=== PATIENT | female | born 1995 | race Caucasian/White ===

== ENCOUNTER 2017-02-01 02:54 | Emergency (ER) | payer OTHER ==
[~2017-02-01] VITALS: Ht 160 cm; Wt 58.5 kg
[2017-02-01 02:57] VITALS: Ht 160 cm; Wt 58.5 kg
[2017-02-01] MEDS ORDERED: DiphenhydrAMINE HCL 50 MG/ML VIAL IV STA (03:12)
[2017-02-01] MEDS ORDERED: PROCHLORPERAZINE 5 MG/ML 2 ML VIAL IV STA ×2 (03:12→03:42)
[2017-02-01] MEDS ORDERED: KETOROLAC TROMETHAMINE 30 MG/ML VIAL IV STA (03:12)
[2017-02-01] MEDS ORDERED: SODIUM CHLORIDE 0.9% 1000ML 1,000 ML IV STA (03:12)
--- NOTE | 2017-02-01 03:15 | EMERGENCY ROOM VISIT NOTE ---
History Report prepared by Otf: Anabell Syed Under the Supervision of: Dr. Shon Sanders M.D. First contact with patient: 03:07 Chief Complaint: FEVER Stated Complaint: FEVER OF 102.8,DAVIS,SICK IN STOMACH History of Present Illness The patient is a 21 year old female who presents to the Emergency Room with complaints of a fever beginning 10 hours ago. The patient also complains of a headache and that she has been unable to sleep. She took Tylenol 4 hours ago but it did not mitigate her symptoms. She denies having a cough, urinary symptoms, and abdominal pain. Source of History: patient Onset: 10 hours ago Position: other (global) Quality: other (fever) Associated Symptoms: + headache, No cough, No abdominal pain, No urinary symptoms Review of Systems See HPI for pertinent positives & negatives. A total of 10 systems reviewed and were otherwise negative. Past Medical & Surgical Medical Problems: (1) Asthma (2) Urin Tract Infection Nos Family History No pertinent family history Social History Smoking Status: Never Smoker Drug Use: none Marital Status: Housing Status: lives with significant other Occupation Status: student Current/Historical Medications Scheduled Amoxicillin & Pot Clavulanate (Augmentin 875-125 mg), 1 TAB PO BID Scheduled PRN Acetaminophen (Tylenol), 1,000 MG PO Q4 PRN for Pain or Fever Allergies Coded Allergies: No Known Allergies (Unverified , 02/01/17) Physical Exam Vital Signs Date Time Temp Pulse Resp B/P (MAP) Pulse Ox O2 Delivery O2 Flow Rate FiO2 02/01/17 05:06 37.7 112 18 112/61 97 Room Air 02/01/17 02:57 38.3 139 20 108/65 98 Room Air Physical Exam GENERAL: Patient is a healthy-appearing well-nourished female. No evidence of meningitis or encephalitis upon examination. HEAD: Normocephalic atraumatic EYES: Ocular movements intact pupils equal and react to light OROPHARYNX mucous membranes are moist no exudates present no erythema or edema present NECK: Supple no nuchal rigidity CHEST: Good equal expansion LUNGS: Clear and equal to auscultation CARDIAC: Normal S1 and S2 ABDOMEN: Soft nontender no guarding BACK: No CVA tenderness EXTREMITIES: No pain upon palpation normal muscle strength in all groups no clubbing cyanosis or edema NEURO: Patient is following commands and answering questions appropriately. Alert and oriented x3 Cranial Nerves 2-12 grossly intact Medical Decision & Procedures Laboratory Results 02/01/17 03:30 Red Blood Count 4.68, Mean Corpuscular Volume 87.8, Mean Corpuscular Hemoglobin 30.6, Mean Corpuscular Hemoglobin Concent 34.8, Mean Platelet Volume 10.5, Neutrophils (%) (Auto) 92.7, Lymphocytes (%) (Auto) 3.1, Monocytes (%) (Auto) 3.6, Eosinophils (%) (Auto) 0.1, Basophils (%) (Auto) 0.1, Neutrophils # (Auto) 16.97, Lymphocytes # (Auto) 0.57, Monocytes # (Auto) 0.66, Eosinophils # (Auto) 0.01, Basophils # (Auto) 0.01 02/01/17 03:30 Test 02/01/17 00:00 02/01/17 03:30 02/01/17 04:00 Urine Color YELLOW Urine Appearance CLEAR (CLEAR) Urine pH >= 9.0 (4.5-7.5) Urine Specific [place] 1.019 (1.000-1.030) Urine Protein NEG (NEG) Urine Glucose (UA) NEG (NEG) Urine Ketones NEG (NEG) Urine Occult Blood NEG (NEG) Urine Nitrite NEG (NEG) Urine Bilirubin NEG (NEG) Urine Urobilinogen NEG (NEG) Urine Leukocyte Esterase NEG (NEG) Influenza Type A (RT-PCR) Neg for Influ A (NEG) Influenza Type A Antigen Neg for Influ A (NEG) Influenza Type B Antigen Neg for Influ B (NEG) Influenza Type B (RT-PCR) Neg for Influ B (NEG) White Blood Count 18.29 K/uL (4.8-10.8) Red Blood Count 4.68 M/uL (4.2-5.4) Hemoglobin 14.3 g/dL (12.0-16.0) Hematocrit 41.1 % (37-47) Mean Corpuscular Volume 87.8 fL (80-100) Mean Corpuscular Hemoglobin 30.6 pg (25-34) Mean Corpuscular Hemoglobin Concent 34.8 g/dl (32-36) Platelet Count 213 K/uL (130-400) Mean Platelet Volume 10.5 fL (7.4-10.4) Neutrophils (%) (Auto) 92.7 % Lymphocytes (%) (Auto) 3.1 % Monocytes (%) (Auto) 3.6 % Eosinophils (%) (Auto) 0.1 % Basophils (%) (Auto) 0.1 % Neutrophils # (Auto) 16.97 K/uL (1.4-6.5) Lymphocytes # (Auto) 0.57 K/uL (1.2-3.4) Monocytes # (Auto) 0.66 K/uL (0.11-0.59) Eosinophils # (Auto) 0.01 K/uL (0-0.5) Basophils # (Auto) 0.01 K/uL (0-0.2) RDW Standard Deviation 38.4 fL (36.4-46.3) RDW Coefficient of Variation 12.1 % (11.5-14.5) Immature Granulocyte % (Auto) 0.4 % Immature Granulocyte # (Auto) 0.07 K/uL (0.00-0.02) Red Blood Cell Morphology Unremarkable Anion Gap 9.0 mmol/L (3-11) Est Creatinine Clear Calc Drug Dose 79.1 ml/min Estimated GFR () 101.8 Estimated GFR (Non- 87.9 BUN/Creatinine Ratio 8.5 (10-20) Calcium Level 8.6 mg/dl (8.5-10.1) Total Bilirubin 0.6 mg/dl (0.2-1) Direct Bilirubin 0.1 mg/dl (0-0.2) Aspartate Amino Transf (AST/SGOT) 12 U/L (15-37) Alanine Aminotransferase (ALT/SGPT) 11 U/L (12-78) Alkaline Phosphatase 78 U/L (45-117) Total Protein 7.7 gm/dl (6.4-8.2) Albumin 4.1 gm/dl (3.4-5.0) Monoscreen NEG (NEG) Urine Test NEG (NEG) Labs reviewed by ED physician. Medications Administered Medications (Trade) Dose Ordered Sig/Dilan Route Start Time Stop Time Status Last Admin Dose Admin Sodium Chloride 1,000 ml @ 999 mls/hr Q1H1M STAT IV 02/01/17 03:12 02/01/17 04:12 DC 02/01/17 03:12 999 MLS/HR Ketorolac Tromethamine (Toradol Inj) 30 mg NOW STAT IV 02/01/17 03:12 02/01/17 03:15 DC 02/01/17 03:12 30 MG Diphenhydramine HCl (Benadryl Inj) 50 mg NOW STAT IV 02/01/17 03:12 02/01/17 03:15 DC 02/01/17 03:43 50 MG Prochlorperazine Edisylate (Compazine Inj) 5 mg NOW STAT IV 02/01/17 03:42 02/01/17 03:44 DC 02/01/17 03:42 5 MG Acetaminophen (Tylenol Tab) 1,000 mg NOW STAT PO 02/01/17 04:53 02/01/17 04:54 DC 02/01/17 05:04 1,000 MG Amoxicillin/ Clavulanate Potassium (Augmentin Tab) 875 mg NOW STAT PO 02/01/17 04:57 02/01/17 04:59 DC 02/01/17 05:04 875 MG ED Course 0305: Past medical records reviewed. The patient was evaluated in room B12B. A complete history and physical examination was performed. 0312: Ordered Benadryl Inj 50 mg IV, Compazine Inj 5 mg IV, Toradol Inj 30 ng IV , Sodium Chloride 1,000 ml @ 999mls/hr IV. 0320: Ordered Lorazepam 1 mg IV. 0342: Ordered Compazine Inj 5 mg IV. 0453: Ordered Tylenol Tab 1,000 mg PO. 0457: Ordered Augmentin Tab 875 mg PO. 0500: Upon reexamination the patient is resting comfortably. I discussed results and treatment plan with the patient. She verbalizes agreement and understanding. The patient is ready for discharge. Medical Decision Differentials: Influenza, other viral illness, pneumonia, urinary tract infection, metabolic abnormality, medication effect, cellulitis, meningitis, intra-abdominal source. Medication Reconciliation: I attest that I have personally reviewed the patient' s current medication list Blood Pressure Screening: Patient was found to have normal blood pressure on screening and does not require follow up. This is a 21-year-old female who presents emergency department complaining of headache. The patient reports this is not the worst headache of her life and she has had headaches similar to this in the past. In addition she does not have any evidence of meningitis or encephalitis on examination. She does have a high elevation in her white blood cell count and the patient reports she has had sinusitis-like symptoms for the past week. For this reason the patient was given Augmentin. She was also given normal saline bolus, Toradol, Compazine, Benadryl. Repeat examination revealed much improvement patient's symptoms. I do feel that the patient as well as to be discharged home for follow-up with primary care physician. Both patient and significant other were in agreement with the treatment plan to return to the emergency department for a lumbar puncture if she develops severe headache along with fevers. Impression Primary Impression: Fever Scribe Attestation The scribe's documentation has been prepared under my direction and personally reviewed by me in its entirety. I confirm that the note above accurately reflects all work, treatment, procedures, and medical decision making performed by me. Departure Information Dispostion Home / Self-Care Prescriptions Amoxicillin & Pot Clavulanate (Augmentin 875-125 mg) 1 Tab Tab 1 TAB PO BID for 10 Days, #20 TAB Prov: Shon Sanders MD 02/01/17 Referrals No Doctor, Assigned (PCP) Forms HOME CARE DOCUMENTATION FORM, IMPORTANT VISIT INFORMATION, School Instructions, Work Instructions Patient Instructions ED Sinusitis Abx Tx, [facility] Additional Instructions Take 600 mg Ibuprofen every 6 hours Take 1000 mg Tylenol every 6 hours Culture results are usually available in approx 48 hours You have been examined and treated today on an emergency basis only. This is not a substitute for, or an effort to provide, complete comprehensive medical care. It is impossible to recognize and treat all injuries or illnesses in a single emergency department visit. It is therefore important that you follow up closely with your PCP. Call as soon as possible for an appointment. Thank you for your time and consideration. I look forward to speaking with you again soon. Please don't hesitate to call us if you have any questions. Problem Qualifiers Primary Impression: Fever Fever type: unspecified Qualified Codes: R50.9 - Fever, unspecified
[2017-02-01] MEDS ORDERED: LORAZEPAM 2 MG/ML 1 ML VIAL IV STA (03:20)
[2017-02-01 03:58] LABS: URINE APPEARANCE CLEAR (CLEAR); URINE BILIRUBIN NEG (NEG); URINE COLOR YELLOW; URINE NITRITE NEG (NEG); URINE PH >= 9.0 (4.5-7.5); URINE SPECIFIC GRAVITY 1.019 (1.000-1.030); UROBILINOGEN NEG (NEG)
[2017-02-01 03:59] LABS: MANUAL MICROSCOPIC REQUIRED? NO; REVIEW REQ? NO
[2017-02-01 04:11] LABS: PREG INTERNAL NEGATIVE QC NEG CLEAR BACKGROUND; PREG INTERNAL POSITIVE QC POS CONTROL LINE
[2017-02-01] MEDS ORDERED: ACET-1256 PO (04:18)
[2017-02-01 04:22] LABS: HEMATOCRIT 41.1 % (37-47); MEAN CELL VOLUME 87.8 fL (80-100); MEAN CORPUSCULAR HEMOGLOBIN 30.6 pg (25-34); MEAN CORPUSCULAR HGB CONC 34.8 g/dl (32-36); MEAN PLATELET VOLUME 10.5 fL (7.4-10.4); PLATELET COUNT 213 K/uL (130-400); RED BLOOD COUNT 4.68 M/uL (4.2-5.4); WHITE BLOOD COUNT 18.29 K/uL (4.8-10.8)
[2017-02-01 04:41] LABS: BUN/CREATININE RATIO 8.5 (10-20); CALCIUM 8.6 mg/dl (8.5-10.1); CREATININE 0.93 mg/dl (0.60-1.20); POTASSIUM 3.3 mmol/L (3.5-5.1)
[2017-02-01 04:44] LABS: BASO % 0.1 %; BASO ABS # 0.01 K/uL (0-0.2); COMPLETE YES; EOS % 0.1 %; IG% 0.4 %; LYMPH % 3.1 %; LYMPH ABS # 0.57 K/uL (1.2-3.4); MONO % 3.6 %; NEUT % 92.7 %
[2017-02-01] MEDS ORDERED: ACETAMINOPHEN 500 MG TAB PO STA (04:53)
[2017-02-01] MEDS ORDERED: AMOXICILLIN/CLAVULANATE TAB 875 MG TAB PO STA (04:57)
[2017-02-01] MEDS ORDERED: AMOX875T PO (04:59)
[2017-02-01 05:06] VITALS: BP 112/61; PULSE 112; TEMP 37.7; O2SAT 97
[2017-02-01 05:54] LABS: INFLUENZA A PCR Neg for Influ A (NEG); INFLUENZA B PCR Neg for Influ B (NEG)
[2017-02-03 16:37] LABS: EBV EARLY ANTIGEN AB <9.00 U/ML; EPSTEIN BARR VIR CAPSID IGG <18.00 U/ML
== END 2017-02-01 05:07 | disposition home or self-care (01) ==
LOC: C.EDB 02:56
DX: R50.9 Fever, unspecified (principal); J45.909 Unspecified asthma, uncomplicated; Z87.440 Personal history of urinary (tract) infections

== ENCOUNTER 2024-01-27 14:48 | Inpatient (IN) ==
[2024-01-27] MEDS: LACTATED RINGER'S 1,000 ML IV PRN (15:35)
[2024-01-27] MEDS ORDERED: LIDOCAINE 1% LOCAL 20 ML VIAL INFIL PRN (15:39)
[2024-01-27] MEDS ORDERED: OXYTOCIN 30 UNITS/NSS 30 UNITS/500 ML BAG IV PRN (15:39)
[2024-01-27] MEDS: BUTORPHANOL TARTRATE 2 MG/ML VIAL IV ONE (15:56)
[2024-01-27 16:17] LABS: Hematocrit (blood only) 33.9 % (37.0-47.0); Hemoglobin 10.9 g/dl (12.0-16.0); Mean Corpuscular Hemoglobin 27.8 pg (25.0-34.0); Mean Corpuscular Hgb Conc 32.2 g/dL (32.0-36.0); Mean Corpuscular Volume 86.5 fL (80.0-100.0); Mean Platelet Volume 9.9 fL (9.4-12.4); Platelet Count 239 K/uL (130-400); RDW Coefficient of Variation 12.5 % (11.5-14.5); Red Blood Count 3.92 M/uL (4.20-5.40); White Blood Count 13.64 K/ul (4.8-10.8)
[2024-01-27] MEDS: BUTORPHANOL TARTRATE 2 MG/ML VIAL IV PRN (17:52)
--- OUTSIDE RECORDS SUMMARY | 2024-01-27 20:31 | External Medical Summary ---
Author Name Unknown Address Unknown Organization K01:[facility] [place] - [facility] [address] [place] [id number] Laboratory Report Ordering Provider Test Date Status ESTEBAN MORLEY 01/24/2024 14:19:34 Final Observation Date Value Abnormality Reference (Units ) Status Streptococcus agalactiae DNA [Presence] in Specimen by BLAYNE with probe detection 01/24/2024 14:19:34 Negative Negative Final No Group B Streptococcus det ected by culture-enhanced PCR (amplified probe). [facility] - [facility] 01/24/2024 14:19:34 0.0 Final [facility]BS SPCCT - [facility] 01/24/2024 14:19:34 30.8 Final Performing Location [facility] [place] - [address] [place] [id number]
--- OUTSIDE RECORDS SUMMARY | 2024-01-27 20:31 | External Medical Summary | Summary of Care ---
Author Name Unknown Organization [facility] Address [address] [address] Phone [phone] Care Team Providers Care Story Writer Name Role Phone Sydney Hendricks DO Primary Care Provider [phone] Reason for Visit * Reason Comments Return Visit Encounter Details Date Type Department Care Team (Late st Contact Info) Description 01/24/2024 2:15 PM EDT Office Visit Gynecology/Obstetric s Justyn Brown [address] [place] [address] Jana Betts CRNP [address] [place] [address] Supervision of normal first , antepartum* Allergies No known active allergiesdocumented as of this encounter (statuses as of 01/24/2024) Medications Medication Sig Dispensed Refills Start Date End Date Status Albuterol Sulfate (ALBUTEROL HFA) 108 (90 BASE) MCG/ACT inhalerIndications: Acute bronchospasm Inhale 2 Puffs by mouth every 4 hours as needed for Wheezing. 18 g 1 02/13/2020 Active Clindamycin Phosphate 1 % External SolutionIndications :Acne, unspecified acne type Apply topically to affected area 2 times a day. To affected area of skin. 60 mL 5 12/19/2020 Active Complete Oral Capsule Therapy Pack Take by mouth. Active Clindamycin Phos-Benzoyl Perox 1-5 % External Gel Apply topically to affected area 2 times a day. To affected area (after washing and drying area). 60 g 11 09/29/2023 Active FLUoxetine HCl 10 MG Oral Capsule (PROzac)Indications :HAROON (generalized anxiety disorder) TAKE 1 CAPSULE BY MOUTH EVERY MORNING 90 Capsule 3 10/10/2023 Active Additional Information Patient taking differently: 20 mgOral Daily(AM), Every morning., Reported on 11/14/2023 Loratadine 10 MG Oral Tablet (Claritin) Take 1 Tablet by mouth in the morning. Active Breast Pump Dispense double electric breast pump. Dx:Z39.1 1 Each 01/10/2024 Active documented as of this encounter (statuses as of 01/24/2024) Active Problems Problem Noted Date Diagnosed Date Supervision of normal first , antepartu m 07/14/2023 Medical marijuana use 08/17/2021 Exercise-induced asthma 02/18/2020 HAROON (generalized anxiety disorder) 06/02/2017 Social anxiety disorder 06/02/2017 Acne Estimated Date of Delivery Comme nts Yes 02/19/2024 Based on last me nstrual period of 05/15/2023 documented as of this encounter (statuses as of 01/24/2024) Resolved Problems Problem Noted Date Diagnosed Date Resolved Date Varicella without complication 09/25/2010 04/24/2018 Overview: Mother states child had disease when she was a baby. Routine child health exam 02/08/2007 Idiopathic scoliosis 02/08/2007 018 documented as of this encounter (statuses as of 01/24/2024) Immunizations Name Administration Dates Next Due HPV Vaccine, 4-Valent 08/28/2007,04/27/2007,08/0 03/2007 Meningococcal Conjugate Vacc ine (Menactra/Menveo) 08/19/2011,02/08/2007 PPD 04/27/2023, 2,05/03/2022,12/04,11/26/2019,10/16/2018,03/05/2014 ,02/09/2014 Seasonal Influenza, Quadriva lent, No Preserve, IM 05/23/2017 Seasonal Influenza, Split, I IV3, With Preserve, Inj 07/01/2006 TDAP (age 10 and older)(Boostrix) 11/29/2023 TDAP, Age 7 and older, IM (Adacel) 08/19/2011, documented as of this encounter Social History Tobacco Use Types Packs/Day Years Used Date Smoking Tobacco: Former Vaporizer Smokeless Tobacco: Never Alcohol Use Standard Drinks/Week Comments Not Currently 0 (1 standard drink = 0.6 oz pur e alcohol) occ PHQ-2 Answer Date Recorded PHQ Adult Total Score 0 11/29/2023 Hunger Vital Sign Answer Date Recorded Within the past 12 months, y ou worried that your food would run out before you got the money to buy more. Never true 10/03/19 24 Within the past 12 months, t he food you bought just didn't last and you didn't have money to get more. Never true 10/03/2023 [place] Depression Scale Answer Date Recorded [place] Depression Scale Total 5 11/29/2023 The thought of harming myself has occurred to me . Never 11/29/2023 Childcare Answer Date Recorded Do you feel overwhelmed with taking care of a child, family member or friend? No 10/03/2023 Does your family need help f inding childcare? (Household - for ages 0-17 years) Not on file 10/03/2023 Clothing Answer Date Recorded Have you been unable to get clothing when it was really needed? No 10/03/2023 Is your family able to get c lothes or diapers when needed? (Household - for ages 0-17 years) Not on file 10/03/2023 Personal Safety Answer Date Recorded Do you feel unsafe or have concerns for your saf ety? No 10/03/2023 Do you have concerns for you r family's safety? (Household - for ages 0-17 years) Not on file 10/03/2023 Utilities Answer Date Recorded Do you have trouble paying y our heating, water, or electric bill? No 10/03/2023 Is your family able to pay t he heat, water, or electric bill? (Household - for ages 0-17 years) Not on file 10/03/2023 Does your family have access to good internet? (Household - for ages 0-17 years) Not on file 10/03/2023 Employment Status Answer Date Recorded Are you unemployed or without regular income? No 10/03/2023 Does the household have a re gular source of income? (Household - for ages 0-17 years) Not on file 10/03/2023 Social Connections Answer Date Recorded How often do you feel lonely or isolated from th ose around you? Never 10/03/2023 Financial Resource Strain Answer Date R ecorded Do you have any trouble payi ng for your medications, or do you think you might in the future? No 10/03/2023 Does your family have troubl e paying for medicine? (Household - for ages 0-17 years) Not on file 10/03/2023 Transportation Needs Answer Date Record ed READ ONLY Do you have troubl e getting a ride to medical visits or work? Never True 10/03/2023 Does your family have a hard time getting a ride to doctors visits? (Household - for ages 0-17 years) Not on file 10/03/2023 Has lack of transportation k ept you from medical appointments, meetings, work, or from getting things needed for daily living? Check all that apply. (Adult - for ages 18 years and over) Not on file 10/03/2023 Do you (or your family) have trouble finding or paying for a ride (transportation)? (Household - for ages 0-17 years) Not on file 10/03/2023 Housing Stability Answer Date Recorded Do you currently live in a s helter or have no steady place to sleep at night? No 10/03/2023 READ ONLY Do you think you a re at risk of becoming homeless? No 10/03/2023 Does your family worry about paying for your home or becoming homeless? (Household - for ages 0-17 years) Not on file 0 10/03/2023 Are you homeless or worried that you might be in the future? (Adult - for ages 18 years and over) Not on file Are you (or your family) sebastian eless or worried that you might be in the future? (Household - for ages 0-17 years) Not on file Food Insecurity Answer Date Recorded Do you need food for this week? No 10/03/2023 Are you able to get enough f ood for your family? (Household - for ages 0-17 years) Not on file 10/03/2023 Does your family need food t his week? (Household - for ages 0-17 years) Not on file 10/03/2023 Do you always have enough fo od for your family? (Household - for ages 0-17 years) Not on file 10/03/2023 Estimated Date of Delivery Comme nts Yes 02/19/2024 Based on last me nstrual period of 05/15/2023 Sex and Gender Information Value Date Recorded Sex Assigned at Female 02/18/2020 1:46 PM EDT Gender Identity Female 02/18/2020 1:46 PM EDT Sexual Orientation Straight 02/18/2020 1: 46 PM EDT Job Start Date Occupation Industry Not on file Not on file Not on file documented as of this encounter Last Filed Vital Signs Vital Sign Reading Time Taken Comments Blood Pressure 110/72 01/24/2024 2:04 PM EDT Pulse - - Temperature - - Respiratory Rate - - Oxygen Saturation - - Inhaled Oxygen Concentration - - Weight 79.4 kg (175 lb) 01/24/2024 2:04 PM EDT Height 160 cm (5' 3") 01/24/2024 2:04 PM EDT Body Mass Index 31 01/24/2024 2:04 PM EDT documented in this encounter Progress Notes * Jana Betts CRNP - 01/24/2024 2:16 PM EDT 36w2d No concerns. Some BH contractions, no bleeding or LOF. Baby is active. GBS today. Radiographer Documentation Provider requested ambulance operations supervisor. Name of ambulance operations supervisor: ALBERT Francis documented in this encounter Nursing Notes * Kamryn Carney LPN - 01/24/2024 2:04 PM EDT 36w2d GBS today documented in this encounter Plan of Treatment Pending Results Name Type Priority Associated Diagnoses Date /Time GROUP B STREP CULTURE/PCR Lab Routine Supervision of normal first , antepartum 01/24/2024 2:19 PM EDT Health Maintenance Due Date Last Done Comments Pneumococcal Vaccine: Pediat rics (0 to 5 Years) and At-Risk Patients (6 to 64 Years) (1 of 2 - PCV) 2001 Hepatitis B (1 of 3 - 19+ 3- dose series) 2014 *SPIROMETRY ONCE FOR ASTHMA-ADULT 06/17/2022 COVID-19 Vaccine (1 - 2022-2 4 season) 2023 Influenza Vaccine (FLU shot) (#1) 2024 017, 07/01/2006 Depression Screening 11/28/2024 11/29/2023 Pap Smear 07/14/2026 07/14/2023, 12/24, 01/17/2019 DTaP,Tdap,and Td Vaccines (4 - Td or Tdap) 11/28/2033 11/29/2023, 08/19/2011, 02/08/2007 GARDASIL-HPV IMMUNIZATION SERIES Completed 08/28/2007, 04/27/2007, 03/02/2007 MENINGOCOCCAL (MENACTRA/MENVEO) Completed 2, 02/08/2007 Gonorrhea / Chlamydia Screen Discontinued , 05/08/2014, 02/24/2011 documented as of this encounter Medical Devices Not on filedocumented as of this encounter Visit Diagnoses Diagnosis Supervision of normal first , antepartum- Primary documented in this encounter Care Teams Story Writer Relationship Specialty Start Date End Date Sydney Hendricks DO [address] [facility] [place] [address] PCP - General Family Medicine 04/26/17 documented as of this encounter
--- OUTSIDE RECORDS SUMMARY | 2024-01-27 20:31 | External Medical Summary | Summary of Care ---
Author Name Unknown Organization [facility] Address [address] [facility] [place] [address] Phone [phone] Care Team Providers Care Cable Installer Repairer Helper Name Role Phone Sydney Hendricks DO Primary Care Provider [phone] Reason for Visit * Reason Comments Outpatient Testing Encounter Details Date Type Department Care Team (Late st Contact Info) Description 01/27/2024 10:20 AM EDT Laboratory Laboratory [address] [place] [id number] [facility] [address] [place] [address] Urinary urgency during Allergies No known active allergiesdocumented as of this encounter (statuses as of 01/27/2024) Medications Medication Sig Dispensed Refills Start Date [...] as of this encounter (statuses as of 01/27/2024) Active Problems Problem Noted Date Diagnosed Date Supervision of normal first , antepartu m 07/14/2023 Medical marijuana use 08/17/2021 Exercise-induced asthma 02/18/2020 HAROON (generalized anxiety disorder) 06/02/2017 Social anxiety disorder 06/02/2017 Acne Estimated Date of Delivery Comme nts Yes 02/19/2024 Based on last me nstrual period of 05/15/2023 documented as of this encounter (statuses as of 01/27/2024) Resolved Problems Problem Noted Date Diagnosed Date Resolved Date Varicella without complication 09/25/2010 04/24/2018 Overview: Mother states child had disease when she was a baby. Routine child health exam 02/08/2007 Idiopathic scoliosis 02/08/2007 018 documented as of this encounter (statuses as of 01/27/2024) Immunizations Name Administration Dates Next Due HPV [...] money to get more. Never true 10/03/2023 [place] Depression Scale Answer Date Recorded [place] Depression Scale Total 5 11/29/2023 The thought [...] on file documented as of this encounter Plan of Treatment Upcoming Encounters Date Type Department Care Team (Late st Contact Info) Description 01/31/2024 11:15 AM EDT Office Visit Gynecology/Obstetrics Justyn Brown [address] [place] [address] Jana Betts CRNP [address] [place] [address] Pending Results Name Type Priority Associated Diagnoses Date /Time URINALYSIS, REFLEX TO CULTURE (NOT FOR NEUTROPENIC PATIENTS) Lab Routine Urinary urgency during 01/27/2024 10:16 AM EDT URINALYSIS, REFLEX TO CULTURE (CUP ONLY) Lab Routine Urinary urgency during 01/27/2024 10:16 AM EDT URINALYSIS, REFLEX TO CULTURE Lab Routine Urinary urgency during 01/27/2024 10:16 AM EDT Health Maintenance Due Date Last Done Comments Pneumococcal Vaccine: Pediat rics (0 to 5 Years) and At-Risk Patients (6 to 64 Years) (1 of 2 - PCV) 2001 Hepatitis B Vaccine (1 of 3 - 19+ 3-dose series) 2014 *SPIROMETRY ONCE FOR ASTHMA-ADULT 06/17/2022 COVID-19 Vaccine ( - 2022-2 4 season) 2023 Influenza Vaccine (FLU shot) (#1) 2024 017, 07/01/2006 Depression Screening 11/28/2024 11/29/2023 Pap Smear 07/14/2026 07/14/2023, 12/24, 01/17/2019 DTaP,Tdap,and Td Vaccines (4 - Td or Tdap) 11/28/2033 11/29/2023, 08/19/2011, 02/08/2007 HPV (Gardasil) Vaccine Completed 8, 04/27/2007, 03/02/2007 MENINGOCOCCAL (MENACTRA/MENVEO) Completed 2, 02/08/2007 Gonorrhea / Chlamydia Screen Discontinued , 05/08/2014, 02/24/2011 documented as of this encounter Medical Devices Not on filedocumented as of this encounter Visit Diagnoses Diagnosis Urinary urgency during documented in this encounter Care Teams Cable Installer Repairer Helper Relationship Specialty Start Date End Date Sydney Hendricks DO [address] [place] [address] PCP - General Family Medicine 04/26/17 documented as of this encounter
--- OUTSIDE RECORDS SUMMARY | 2024-01-27 20:31 | External Medical Summary | Summary of Care ---
Author Name Unknown Organization [facility] Address [address] [facility] [place] [address] Phone [phone] Care Team Providers Care Women'S Activities Adviser Name Role Phone Sydney Hendricks DO Primary Care Provider [phone] Reason for Visit * Reason Comments Return Visit Encounter Details Date Type Department Care Team (Late st Contact Info) Description 01/24/2024 2:15 PM EDT Office Visit Gynecology/Obstetric s Justyn Brown [address] [place] [address] Jana Betts CRNP [address] [place] [address] Supervision of normal first , antepartum* Allergies [...] money to get more. Never true 10/03/2023 [place] Depression Scale Answer Date Recorded [place] Depression Scale Total 5 11/29/2023 The thought [...] or LOF. Baby is active. GBS today. Product Evangelist Documentation Provider requested health analytics consultant. Name of health analytics consultant: ALBERT Francis documented in this encounter Nursing [...] Primary documented in this encounter Care Teams Women'S Activities Adviser Relationship Specialty Start Date End Date Sydney Hendricks DO [address] [facility] [place] [address] PCP - General Family Medicine 04/26/17 documented as of this encounter
--- OUTSIDE RECORDS SUMMARY | 2024-01-27 20:32 | External Medical Summary ---
Author Name Unknown Address Unknown Organization [id number]:[facility] - [address] [place] [address] Laboratory Report Ordering Provider Test Date Status ESTEBAN MORLEY 11/29/2023 12:38:58 Final Observation Date Value Abnormality Reference (Units ) Status TSH 11/29/2023 12:38:58 3.60 0.27-4.20 (uIU/mL) Final Performing Location [facility] - [address] [place] [address]
--- OUTSIDE RECORDS SUMMARY | 2024-01-27 20:32 | External Medical Summary | Summary of Care ---
Author Name Unknown Organization [facility] Address [address] [facility] [place] [address] Phone [phone] Care Team Providers Care Production Expediter Name Role Phone Sydney Hendricks DO Primary Care Provider [phone] Reason for Visit * Reason Comments Return Visit Encounter Details Date Type Department Care Team (Late st Contact Info) Description 12/26/2023 2:15 PM EDT Office Visit Gynecology/Obstetric s Justyn Brown [address] [place] [address] BackerNancy CRNP [address] [place] [address] Supervision of normal first , antepartum*; RUQ pain Allergies No known active allergiesdocumented as of this encounter (statuses as of 12/26/2023) Medications Medication Sig Dispensed Refills Start Date [...] Tablet by mouth in the morning. Active documented as of this encounter (statuses as of 12/26/2023) Active Problems Problem Noted Date Diagnosed Date Supervision of normal first , antepartu m 07/14/2023 Medical marijuana use 08/17/2021 Exercise-induced asthma 02/18/2020 HAROON (generalized anxiety disorder) 06/02/2017 Social anxiety disorder 06/02/2017 Acne Estimated Date of Delivery Comme nts Yes 02/19/2024 Based on last me nstrual period of 05/15/2023 documented as of this encounter (statuses as of 12/26/2023) Resolved Problems Problem Noted Date Diagnosed Date Resolved Date Varicella without complication 09/25/2010 04/24/2018 Overview: Mother states child had disease when she was a baby. Routine child health exam 02/08/2007 Idiopathic scoliosis 02/08/2007 018 documented as of this encounter (statuses as of 12/26/2023) Immunizations Name Administration Dates Next Due HPV [...] money to get more. Never true 10/03/2023 [place] Depression Scale Answer Date Recorded [place] Depression Scale Total 5 11/29/2023 The thought of harming myself has occurred to me . Never 11/29/2023 Estimated Date of Delivery Comme nts Yes [...] Sign Reading Time Taken Comments Blood Pressure 114/62 12/26/2023 2:05 PM EDT Pulse - - Temperature - - Respiratory Rate - - Oxygen Saturation - - Inhaled Oxygen Concentration - - Weight 76.2 kg (168 lb) 12/26/2023 2:05 PM EDT Height - - Body Mass Index 29.76 12/16/2023 10:29 AM EDT documented in this encounter Progress Notes * Nancy Rodriguez CRNP - 12/26/2023 2:08 PM EDT 32w1d Baby is active. No leaking, bleeding, ctx. Still with intermittent RUQ pain, burning. Not related to eating. Denies nausea/vomiting. When working a 12 hr shift, the pain was more constant. Took Pepcid and slept, improved by the morning. Lyingon her L side helps. Will obtain imaging; normal LFTs last month. Suggest Prilosec, Prevacid, Pepcid daily x14 days. Discussed CBE classes, choosing peds. 2 week return ALBERT Sarmiento * Jeanne Eckert LPN - 12/26/2023 2:07 PM EDT 32w1d Denies vaginal bleeding/rom + movement [place] RUQ pain that comes and goes- worse yesterday. Typically rest helps. "Burning sensation" documented in this encounter Plan of Treatment Upcoming Encounters Date Type Department Care Team (Late st Contact Info) Description 12/29/2023 2:45 PM EDT Imaging Radiology [facility] 2[facility] [address] [place] [address] 01/10/2024 3:00 PM EDT Office Visit Gynecology/Obstetrics [facility] [address] [place] [address] Daniel Ghosh MD [address] [place] [phone] Scheduled Orders Name Type Priority Associated Diagnoses Orde r Schedule US ABDOMEN LIMITED Medical Imaging Routine RUQ pain Expected: 12/26/2023 (Approximate), Expires: 01/24/2025 Health Maintenance Due Date Last Done Comments Pneumococcal Vaccine: Pediat rics (0 to 5 Years) and At-Risk Patients (6 to 64 Years) (1 of 2 - PCV) 2001 Hepatitis B (1 of 3 - 19+ 3- dose series) 2014 *SPIROMETRY ONCE FOR ASTHMA-ADULT 06/17/2022 COVID-19 Vaccine ( - 2022-2 4 season) 2023 Influenza Vaccine (FLU shot) (Season Ended) 2024 05/23/2017, 07/01/2006 Depression Screening 11/28/2024 11/29/2023 Pap Smear 07/14/2026 07/14/2023, 12/24, 01/17/2019 DTaP,Tdap,and Td Vaccines (4 - Td or Tdap) 11/28/2033 11/29/2023, 08/19/2011, 02/08/2007 GARDASIL-HPV IMMUNIZATION SERIES Completed 08/28/2007, 04/27/2007, 03/02/2007 MENINGOCOCCAL (MENACTRA/MENVEO) Completed , 02/08/2007 Gonorrhea / Chlamydia Screen Discontinued , 05/08/2014, 02/24/2011 documented as of this encounter Medical Devices Not on filedocumented as of this encounter Visit Diagnoses Diagnosis Supervision of normal first , antepartum- Primary RUQ pain Abdominal pain, right upper quadrant documented in this encounter Care Teams Production Expediter Relationship Specialty Start Date End Date Sydney Hendricks DO [address] [facility] [place] [address] PCP - General Family Medicine 04/26/17 documented as of this encounter
--- OUTSIDE RECORDS SUMMARY | 2024-01-27 20:32 | External Medical Summary ---
Author Name Unknown Address Unknown Organization [id number]:LAB[facility]ATORY [facility] - [address] [place] [address] Laboratory Report Ordering Provider Test Date Status ESTEBAN MORLEY 11/29/2023 12:38:58 Final Observation Date Value Abnormality Reference (Units ) Status Glucose [Moles/volume] in Serum or Plasma --1 hour post 50 g glucose PO 11/29/2023 12:38:58 97 70-129 (mg/dL) Final Performing Location LABORATORY [facility] 0 - [address] [place] [address]
--- OUTSIDE RECORDS SUMMARY | 2024-01-27 20:32 | External Medical Summary | Summary of Care ---
Author Name Unknown Organization [facility] Address [address] [facility] [place] [address] Phone [phone] Care Team Providers Care Head Swamper Name Role Phone Sydney Hendricks DO Primary Care Provider [phone] Reason for Visit * Reason Comments Return Visit Encounter Details Date Type Department Care Team (Late st Contact Info) Description 12/16/2023 10:30 AM EDT Office Visit Gynecology/Obstetric s Justyn Brown [address] [place] [address] Jana Betts CRNP [address] [place] [address] Supervision of normal first , antepartum* Allergies No known active allergiesdocumented as of this encounter (statuses as of 12/16/2023) Medications Medication Sig Dispensed Refills Start Date [...] as of this encounter (statuses as of 12/16/2023) Active Problems Problem Noted Date Diagnosed Date Supervision of normal first , antepartu m 07/14/2023 Medical marijuana use 08/17/2021 Exercise-induced asthma 02/18/2020 HAROON (generalized anxiety disorder) 06/02/2017 Social anxiety disorder 06/02/2017 Acne Estimated Date of Delivery Comme nts Yes 02/19/2024 Based on last me nstrual period of 05/15/2023 documented as of this encounter (statuses as of 12/16/2023) Resolved Problems Problem Noted Date Diagnosed Date Resolved Date Varicella without complication 09/25/2010 04/24/2018 Overview: Mother states child had disease when she was a baby. Routine child health exam 02/08/2007 Idiopathic scoliosis 02/08/2007 018 documented as of this encounter (statuses as of 12/16/2023) Immunizations Name Administration Dates Next Due HPV Vaccine, 4-Valent 08/28/2007,04/27/2007,08/0 03/2007 Meningococcal Conjugate Vacc ine (Menactra/Menveo) 08/19/2011,02/08/2007 PPD 04/27/2023, 2,05/03/2022,12/04,11/26/2019,10/16/2018,03/05/2014 ,02/09/2014 Seasonal Influenza, Quadriva lent, No Preserve, IM 05/23/2017 Seasonal Influenza, Split, I IV3, With Preserve, Inj 07/01/2006 TDAP (age 10 and older)(Boostrix) 11/29/2023 TDAP (age 11 and older)(Adacel) 08/19/2011,02/08 documented as of this encounter Social History [...] money to get more. Never true 10/03/2023 [place] Depression Scale Answer Date Recorded [place] Depression Scale Total 5 11/29/2023 The thought [...] Sign Reading Time Taken Comments Blood Pressure 110/60 12/16/2023 10:29 AM EDT Pulse - - Temperature - - Respiratory Rate - - Oxygen Saturation - - Inhaled Oxygen Concentration - - Weight 74.8 kg (165 lb) 12/16/2023 10:29 AM EDT Height 160 cm (5' 3") 12/16/2023 10:29 AM EDT Body Mass Index 29.23 12/16/2023 10:29 AM EDT documented in this encounter Progress Notes * Jana Betts CRNP - 12/16/2023 10:46 AM EDT 30w5d Still with intermittent RUQ pain, discussed at last visit as well. No change to pain at all. LFTs normal last visit. No other concerns. Baby is active. No contractions, bleeding, LOF. ALBERT [place] * Katiuska Bob LPN - 12/16/2023 10:30 AM EDT 30w5d Has right sided pain that comes and goes at random documented in this encounter Plan of Treatment Health Maintenance Due Date Last Done Comments [...] Primary documented in this encounter Care Teams Head Swamper Relationship Specialty Start Date End Date Sydney Hendricks DO [address] [place] [address] PCP - General Family Medicine 04/26/17 documented as of this encounter
--- OUTSIDE RECORDS SUMMARY | 2024-01-27 20:32 | External Medical Summary ---
Author Name Unknown Address Unknown Organization K01:LABORATORY [facility] [place] - [address] [place] [address] Laboratory Report Ordering Provider Test Date Status PEYMANESTEBAN 11/29/2023 12:38:58 Final Observation Date Value Abnormality Reference (Units ) Status Iron 11/29/2023 12:38:58 53 33-151 (ug/dL) Final Iron-binding capacity 11/29/2023 12:38:58 507 Above high normal 250-425 (ug/dL) Final Transferrin Sat % 11/29/2023 12:38:58 10 Below low normal 15-55 (%) Final Performing Location LABORATORY [facility] [place] - [address] [place] [address]
--- OUTSIDE RECORDS SUMMARY | 2024-01-27 20:32 | External Medical Summary ---
Author Name Unknown Address Unknown Organization K01:LABORATORY [facility] [place] - [facility] [address] [place] [address] Laboratory Report Ordering Provider Test Date Status ESTEBAN MORLEY 11/29/2023 12:38:58 Final Observation Date Value Abnormality Reference (Units ) Status Retic, % (auto) 11/29/2023 12:38:58 1.90 0.80-1.90 (%) Final Reticulocytes, Absolute 11/29/2023 12:38:58 73.0 31.3-100.1 (K/uL) Final Reticulocyte fraction, immature 11/29/2023 12:38:58 21.7 Above high normal 2.5-20.6 (%) Final Reticulocyte HGB 11/29/2023 12:38:58 30.1 29.7-37.4 (pg) Final Performing Location LABORATORY [facility] [place] - [address] [place] [address]
--- OUTSIDE RECORDS SUMMARY | 2024-01-27 20:32 | External Medical Summary ---
Author Name Unknown Address Unknown Organization K01:[facility] - [address] [place] [address] Laboratory Report Ordering Provider Test Date Status ESTEBAN MORLEY 11/29/2023 12:38:58 Final Observation Date Value Abnormality Reference (Units ) Status Vitamin B12 11/29/2023 12:38:58 808 438-1185 (pg/mL) Final Performing Location [facility] - [address] [place] [address]
--- OUTSIDE RECORDS SUMMARY | 2024-01-27 20:32 | External Medical Summary | Summary of Care ---
Author Name Unknown Organization [facility] Address [address] [facility] [place] [address] Phone [phone] Care Team Providers Care Environmental Services Assistant Name Role Phone Sydney Hendricks DO Primary Care Provider [phone] Reason for Visit * Reason Comments Return Visit Encounter Details Date Type Department Care Team (Late st Contact Info) Description 01/10/2024 10:00 AM EDT Office Visit Gynecology/Obstetric s Justyn Brown [address] [place] [address] Jana Betts CRNP [address] [place] [address] Supervision of normal first , antepartum* Allergies No known active allergiesdocumented as of this encounter (statuses as of 01/10/2024) Medications Medication Sig Dispensed Refills Start Date [...] as of this encounter (statuses as of 01/10/2024) Active Problems Problem Noted Date Diagnosed Date Supervision of normal first , antepartu m 07/14/2023 Medical marijuana use 08/17/2021 Exercise-induced asthma 02/18/2020 HAROON (generalized anxiety disorder) 06/02/2017 Social anxiety disorder 06/02/2017 Acne Estimated Date of Delivery Comme nts Yes 02/19/2024 Based on last me nstrual period of 05/15/2023 documented as of this encounter (statuses as of 01/10/2024) Resolved Problems Problem Noted Date Diagnosed Date Resolved Date Varicella without complication 09/25/2010 04/24/2018 Overview: Mother states child had disease when she was a baby. Routine child health exam 02/08/2007 Idiopathic scoliosis 02/08/2007 018 documented as of this encounter (statuses as of 01/10/2024) Immunizations Name Administration Dates Next Due HPV [...] money to get more. Never true 10/03/2023 [place] Depression Scale Answer Date Recorded [place] Depression Scale Total 5 11/29/2023 The thought [...] Sign Reading Time Taken Comments Blood Pressure 112/64 01/10/2024 10:05 AM EDT Pulse - - Temperature - - Respiratory Rate - - Oxygen Saturation - - Inhaled Oxygen Concentration - - Weight 76.3 kg (168 lb 4.8 oz) 01/10/2024 10:05 AM EDT Height - - Body Mass Index 29.81 12/16/2023 10:29 AM EDT documented in this encounter Progress Notes * Jana Betts CRNP - 01/10/2024 10:17 AM EDT 34w2d No concerns. Feeling well overall. Baby is moving well. Denies contractions, bleeding, LOF. Planning to breast feed, script sent to [facility]. Discussed contraception, undecided. ALBERT [place] * Puja Ballesteros LPN - 01/10/2024 10:05 AM EDT Pt is currently 34w2d with an Estimated Date of Delivery: 02/19/24 - documented in this encounter Plan of Treatment Upcoming Encounters Date Type Department Care Team (Late st Contact Info) Description 01/24/2024 2:15 PM EDT Office Visit Gynecology/Obstetrics [address] [place] [address] Jana Betts CRNP [address] [place] [address] Health Maintenance Due Date Last Done Comments [...] Primary documented in this encounter Care Teams Environmental Services Assistant Relationship Specialty Start Date End Date Sydney Hendricks DO [address] [place] [address] PCP - General Family Medicine 04/26/17 documented as of this encounter
--- OUTSIDE RECORDS SUMMARY | 2024-01-27 20:32 | External Medical Summary ---
Author Name Unknown Address Unknown Organization K01:[facility]AT[facility] [place] - [address] [place] [address] Laboratory Report Ordering Provider Test Date Status ESTEBAN MORLEY 11/29/2023 12:38:58 Final Observation Date Value Abnormality Reference (Units ) Status Folic Acid 11/29/2023 12:38:58 >20.0 >4.5 (ng/ mL) Final Performing Location [facility] - [address] [place] [address]
--- OUTSIDE RECORDS SUMMARY | 2024-01-27 20:32 | External Medical Summary | Summary of Care ---
Author Name Unknown Organization [facility] Address [address] [facility] [place] [address] Phone [phone] Care Team Providers Care Staffing Director Name Role Phone Sydney Hendricks DO Primary Care Provider [phone] Reason for Visit * Reason Comments Outpatient Testing Encounter Details Date Type Department Care Team (Late st Contact Info) Description 11/29/2023 11:20 AM EDT Laboratory [facility], [facility] [phone] [facility] [address] [place] [address] Arrived Allergies No known active allergiesdocumented as of this encounter (statuses as of 11/29/2023) Medications Medication Sig Dispensed Refills Start Date [...] Oral Capsule Therapy Pack Take by mouth. 0 Active Clindamycin Phos-Benzoyl Perox 1-5 % External [...] mgOral Daily(AM), Every morning., Reported on 11/14/2023 documented as of this encounter (statuses as of 11/29/2023) Active Problems Problem Noted Date Diagnosed Date Supervision of normal first , antepartu m 07/14/2023 Medical marijuana use 08/17/2021 Exercise-induced asthma 02/18/2020 HAROON (generalized anxiety disorder) 06/02/2017 Social anxiety disorder 06/02/2017 Acne Estimated Date of Delivery Comme nts Yes 02/19/2024 Based on last me nstrual period of 05/15/2023 documented as of this encounter (statuses as of 11/29/2023) Resolved Problems Problem Noted Date Diagnosed Date Resolved Date Varicella without complication 09/25/2010 04/24/2018 Overview: Mother states child had disease when she was a baby. Routine child health exam 02/08/2007 Idiopathic scoliosis 02/08/2007 018 documented as of this encounter (statuses as of 11/29/2023) Immunizations Name Administration Dates Next Due HPV Vaccine, 4-Valent 08/28/2007,04/27/2007,03/2007 Meningococcal Conjugate Vacc ine (Menactra/Menveo) 08/19/2011,02/08/2007 PPD 04/27/2023, 2,05/03/2022,12/04,11/26/2019,10/16/2018,03/05/2014 ,02/09/2014 Seasonal Influenza, Quadriva lent, No Preserve, IM 05/23/2017 Seasonal Influenza, Split, I IV3, With Preserve, Inj 07/01/2006 TDAP (age 11 and older)(Adacel) 08/19/2011,02/08 documented [...] money to get more. Never true 10/03/2023 [place] Depression Scale Answer Date Recorded [place] Depression Scale Total 5 11/29/2023 The thought [...] Care Team (Late st Contact Info) Description 11/29/2023 11:45 AM EDT Office Visit Gynecology/Obstetric s Justyn Brown [address] [place] [address] BackerNancy CRNP [address] [place] [address] Supervision of normal first , antepartum*; RUQ pain Health Maintenance Due Date Last Done Comments Pneumococcal Vaccine: Pediat rics (0 to 5 Years) and At-Risk Patients (6 to 64 Years) (1 of 2 - PCV) 2001 Hepatitis B (1 of 3 - 19+ 3- dose series) 2014 DTaP,Tdap,and Td Vaccines (3 - Td or Tdap) 08/19/2021 08/19/2011, 02/08/2007 *SPIROMETRY ONCE FOR ASTHMA-ADULT 06/17/2022 COVID-19 Vaccine ( - 2022-2 4 season) 2023 Influenza Vaccine (FLU shot) (Season Ended) 2024 05/23/2017, 07/01/2006 Depression Screening 11/28/2024 11/29/2023, 04/25/20 19 Pap Smear 07/14/2026 07/14/2023, 12/24, 01/17/2019 GARDASIL-HPV IMMUNIZATION SERIES Completed 08/28/2007, 04/27/2007, 03/02/2007 MENINGOCOCCAL (MENACTRA/MENVEO) Completed , 02/08/2007 Gonorrhea / Chlamydia Screen Discontinued , 05/08/2014, 02/24/2011 documented as of this encounter Medical Devices Not on filedocumented as of this encounter Care Teams Staffing Director Relationship Specialty Start Date End Date Sydney Hendricks DO [address] [place] [address] PCP - General Family Medicine 04/26/17 documented as of this encounter
--- OUTSIDE RECORDS SUMMARY | 2024-01-27 20:32 | External Medical Summary ---
Author Name Unknown Address Unknown Organization [facility] [address] [place] [address] Laboratory Report Ordering Provider Test Date Status ESTEBAN MORLEY 11/29/2023 12:38:58 Final Observation Date Value Abnormality Reference (Units ) Status SYNC LEUKOCYTES IN BLOOD BY AUTOMATED COUNT 11/29/2023 12:38:58 11.35 Above high normal 4.00-10.80 (K/uL) Final Segs 11/29/2023 12:38:58 76.6 Above high normal 40.0-75.0 (%) Final Lymphs % 11/29/2023 12:38:58 14.4 Below low normal 18.0-42.0 (%) Final Monos 11/29/2023 12:38:58 7.2 1.0-11.0 (%) Final Eosinophils 11/29/2023 12:38:58 1.7 0.0-6.0 (%) Final Basos 11/29/2023 12:38:58 0.1 0.0-2.0 (%) Final Absolute Segs 11/29/2023 12:38:58 8.69 Above high normal 1.80-7.70 (K/uL) Final Lymphs, absolute 11/29/2023 12:38:58 1.64 1.00-4.80 (K/ul) Final Monos, Abs 11/29/2023 12:38:58 0.82 0.00-1.10 (K/uL) Final Eos, Abs 11/29/2023 12:38:58 0.19 0.00-0.70 (K/uL) Final Basos, Abs 11/29/2023 12:38:58 0.01 0.00-0.20 (K/uL) Final Performing Location [facility] - [address] [place] [address]
--- OUTSIDE RECORDS SUMMARY | 2024-01-27 20:32 | External Medical Summary ---
Author Name Unknown Address Unknown Organization K0G:LABORATORY [facility] - [address] [place] [address] Laboratory Report Ordering Provider Test Date Status SHAHIDBACKER 11/29/2023 12:38:58 Final Observation Date Value Abnormality Reference (Units ) Status Albumin 11/29/2023 12:38:58 3.8 3.8-5.0 (g/dL) Final AST (Aspartate aminotransferase) 11/29/2023 12:38:58 21 10-35 (U/L) Final Alk Phos 11/29/2023 12:38:58 104 35-130 (U/L) Final ALT (Alanine aminotransferase) 11/29/2023 12:38:58 8 Below low normal 10-35 (U/L) Final Bilirubin, Total 11/29/2023 12:38:58 <0.2 <=1.2 (mg/dL) Final Bilirubin, Direct 11/29/2023 12:38:58 <0.2 0.0-0.3 (mg/dL) Final Protein 11/29/2023 12:38:58 6.6 6.0-8.3 (g/dL) Final Performing Location LABORATORY [facility] 0 - [address] [place] [address]
--- OUTSIDE RECORDS SUMMARY | 2024-01-27 20:32 | External Medical Summary | Summary of Care ---
Author Name Unknown Organization [facility] Address [address] [facility] [place] [address] Phone [phone] Care Team Providers Care Sandwich Wrapper Name Role Phone Sydney Hendricks DO Primary Care Provider [phone] Reason for Visit * Reason Comments Outpatient Testing Encounter Details Date Type Department Care Team (Late st Contact Info) Description 11/29/2023 11:20 AM EDT Laboratory Laboratory, [facility] [address] [facility] [place] [phone] [facility] [address] [place] [address] Sore throat; Supervision of normal first , antepartum; RUQ pain Allergies No known active allergiesdocumented [...] money to get more. Never true 10/03/2023 [place] Depression Scale Answer Date Recorded [place] Depression Scale Total 5 11/29/2023 The thought [...] as of this encounter Plan of Treatment Pending Results Name Type Priority Associated Diagnoses Date /Time MONONUCLEOSIS HETEROPHILE ANTIBODY Lab Routine Sore throat 11/29/2023 12:38 PM EDT 50-G GESTATIONAL GLUCOSE, 1 HOUR Lab Routine Supervision of normal first , antepartum 11/29/2023 12:38 PM EDT CBC WITH WBC DIFFERENTIAL AND ANEMIA REFLEX WORKUP Lab Routine Supervision of normal first , antepartum 11/29/2023 12:38 PM EDT SYPHILIS ANTIBODY SCREEN WITH REFLEX TO RPR Lab Routine Supervision of normal first , antepartum 11/29/2023 12:38 PM EDT HEPATIC FUNCTION PANEL Lab Routine RUQ pain 11/29/2023 12:38 PM EDT ANEMIA CBC Lab Routine Supervision of normal first , antepartum 11/29/2023 12:38 PM EDT DIFFERENTIAL, AUTOMATED Lab Routine Supervision of normal first , antepartum 11/29/2023 12:38 PM EDT ANEMIA REFLEX CHEMISTRY HOLD Lab Routine Supervision of normal first , antepartum 11/29/2023 12:38 PM EDT SYPHILIS ANTIBODY SCREEN Lab Routine Supervision of normal first , antepartum 11/29/2023 12:38 PM EDT Health Maintenance Due Date Last [...] as of this encounter Visit Diagnoses Diagnosis Sore throat Acute pharyngitis Supervision of normal first , antepartum RUQ pain Abdominal pain, right upper quadrant documented in this encounter Care Teams Sandwich Wrapper Relationship Specialty Start Date End Date Sydney Hendricks DO [address] [facility] [place] [address] PCP - General Family Medicine 04/26/17 documented as of this encounter
--- OUTSIDE RECORDS SUMMARY | 2024-01-27 20:32 | External Medical Summary | Summary of Care ---
Author Name Unknown Organization [facility] Address [address] [facility] [place] [address] Phone [phone] Care Team Providers Care Service Rig Operator Name Role Phone Sydney Hendricks DO Primary Care Provider [phone] Reason for Visit * Reason Comments Return Visit Encounter Details Date Type Department Care Team (Late st Contact Info) Description 11/29/2023 11:45 AM EDT Office Visit Gynecology/Obstetric s Justyn Brown [address] [place] [address] BackNancy whalen CRNP [address] [place] [address] Supervision of normal first , antepartum*; RUQ pain; Need for prophylactic vaccination with combined cpardphstw-frszuef-bx rtussis (DTP) vaccine Allergies No known active allergiesdocumented as of [...] 1 Tablet by mouth in the morning. 0 Active documented as of this encounter (statuses [...] Administration Dates Next Due HPV Vaccine, 4-Valent 08/28/2007,04/27/2007,0803/2007 Meningococcal Conjugate Vacc ine (Menactra/Menveo) 08/19/2011,02/08/2007 PPD [...] money to get more. Never true 10/03/2023 [place] Depression Scale Answer Date Recorded [place] Depression Scale Total 5 11/29/2023 The thought [...] Sign Reading Time Taken Comments Blood Pressure 100/60 11/29/2023 11:26 AM EDT Pulse - - Temperature - - Respiratory Rate - - Oxygen Saturation - - Inhaled Oxygen Concentration - - Weight 72.1 kg (159 lb) 11/29/2023 11:26 AM EDT Height - - Body Mass Index 28.17 11/14/2023 10:15 AM EDT documented in this encounter Progress Notes * Nancy Rodriguez CRNP - 11/29/2023 11:40 AM EDT 28w2d Baby moving well, reviewed [facility]KC and to notify the office with <10 movements in 2 hrs. No cramping/bleeding. Completing labs today. Discussed recommendation of Tdap in , pt accepts. RUQ pain persists over several weeks, started in her back. Gets better with standing, position changes. No hx gallbladder disease. Sometimes aggravated by eating/drinking - not related to any specific foods/beverages. On exam, abdomen is non-tender w/o organomegaly. Will add LFTs to labs today, butsuspect MSK in nature. Pt to call with worsening symptoms. 2 week return ALBERT Sarmiento * Jeanne Eckert LPN - 11/29/2023 11:27 AM EDT 28w2d Denies vaginal bleeding/rom + movement State upper rt sided pain that she notices more so when sitting- gets better when standing States has been going on for awhile- thinks may be radiating from back. Gtt today Would like to wait for Tdap may get at next visit documented in this encounter Nursing Notes * Jeanne Eckert LPN - 11/29/2023 11:44 AM EDT Patient here for tdap injection. Patient doing well no complaints. Injection given IM as ordered. Patient tolerated well. Patient to follow up as directed. Patient instructed to call if any complications. Patient verbalized understanding of instructions given. Injection site: Left Deltoid Medication Source: Dispensed stock medication documented in this encounter Plan of Treatment Scheduled Orders Name Type Priority Associated Diagnoses Orde r Schedule HEPATIC FUNCTION PANEL Lab Routine RUQ pain Expected: 11/29/2023, Expires: 11/28/2024 Health Maintenance Due Date Last Done Comments [...] RUQ pain Abdominal pain, right upper quadrant Need for prophylactic vaccination with combined iqdfxcbvrw-omrjcaw-rvddmzecv (DTP) vaccine documented in this encounter Care Teams Service Rig Operator Relationship Specialty Start Date End Date Sydney Hendricks DO [address] [facility] [place] [address] PCP - General Family Medicine 04/26/17 documented as of this encounter
--- OUTSIDE RECORDS SUMMARY | 2024-01-27 20:33 | External Medical Summary | Summary of Care ---
Author Name Unknown Organization [facility] Address [address] [facility] [place] [address] Phone [phone] Care Team Providers Care Waiter/Waitress Cocktail Lounge Name Role Phone Sydney Hendricks DO Primary Care Provider [phone] Reason for Visit * Reason Comments Return Visit Encounter Details Date Type Department Care Team (Late st Contact Info) Description 10/04/2023 2:15 PM EDT Office Visit Gynecology/Obstetric s Justyn Brown [address] [place] [address] Jana Betts CRNP [address] [place] [address] Supervision of normal first , antepartum* Allergies No known active allergiesdocumented as of this encounter (statuses as of 10/04/2023) Medications Medication Sig Dispensed Refills Start Date End Date Status Albuterol Sulfate (ALBUTEROL HFA) 108 (90 BASE) MCG/ACT inhalerIndications:A cute bronchospasm Inhale 2 Puffs by mouth every 4 hours as needed for Wheezing. 18 g 1 02/13/2020 Active Clindamycin Phosphate 1 % External SolutionIndications: Acne, unspecified acne type Apply topically to affected area 2 times a day. To affected area of skin. 60 mL 5 12/19/2020 Active FLUoxetine HCl 10 MG Oral Capsule (PROzac)Indications: HAROON (generalized anxiety disorder) Take 1 Capsule by mouth in the morning. 90 Capsule 1 02/10/2023 Active Complete Oral Capsule Therapy Pack Take by mouth. 0 Active Clindamycin Phos-Benzoyl Perox 1-5 % External Gel Apply topically to affected area 2 times a day. To affected area (after washing and drying area). 60 g 11 09/29/2023 Active documented as of this encounter (statuses as of 10/04/2023) Active Problems Problem Noted Date Diagnosed Date Supervision of normal first , antepartu m 07/14/2023 Medical marijuana use 08/17/2021 Exercise-induced asthma 02/18/2020 HAROON (generalized anxiety disorder) 06/02/2017 Social anxiety disorder 06/02/2017 Acne Estimated Date of Delivery Comme nts Yes 02/19/2024 Based on last me nstrual period of 05/15/2023 documented as of this encounter (statuses as of 10/04/2023) Resolved Problems Problem Noted Date Diagnosed Date Resolved Date Varicella without complication 09/25/2010 04/24/2018 Overview: Mother states child had disease when she was a baby. Routine child health exam 02/08/2007 Idiopathic scoliosis 02/08/2007 018 documented as of this encounter (statuses as of 10/04/2023) Immunizations Name Administration Dates Next Due HPV [...] e alcohol) occ PHQ-2 Answer Date Recorded PHQ-2 Score 0 04/25/2019 Hunger Vital Sign Answer Date Recorded Within the past 12 months, y ou worried that your food would run out before you got the money to buy more. Never true 10/03/19 24 Within the past 12 months, t he food you bought just didn't last and you didn't have money to get more. Never true 10/03/2023 [place] Depression Scale Answer Date Recorded [place] Depression Scale Total 6 07/14/2023 The thought of harming myself has occurred to me . Never 07/14/2023 Estimated Date of Delivery Comme nts Yes [...] Sign Reading Time Taken Comments Blood Pressure 104/62 10/04/2023 2:01 PM EDT Pulse - - Temperature - - Respiratory Rate - - Oxygen Saturation - - Inhaled Oxygen Concentration - - Weight 65.3 kg (144 lb) 10/04/2023 2:01 PM EDT Height 160 cm (5' 3") 10/04/2023 2:01 PM EDT Body Mass Index 25.51 10/04/2023 2:01 PM EDT documented in this encounter Progress Notes * Jana Betts CRNP - 10/04/2023 2:32 PM EDT 20w2d Has had intermittent itching of right aerolar area starting a few months prior to . Seems to improve when she uses lotion. Has a light brown ring around areola, not present on left. Asking for evaluation. Belt And Link Shop Supervisor offered and declined. Breast exam shows light brown ring surrounding areola, no lesions, no erythema. Suggested hydrocortisone BID for a few days, notify office at upcoming appt if no improvement. No other concers. Baby is active. No bleeding. Anatomy u/s today, report pending. +cardiac activity seen on u/s. Jana L McHail, CORE STACKER * Katiuska Bob LPN - 10/04/2023 2:17 PM EDT 20w2d Had Anatomy today documented in this encounter Plan of Treatment Health Maintenance Due Date Last Done Comments Pneumococcal Vaccine: Pediat rics (0 to 5 Years) and At-Risk Patients (6 to 64 Years) (1 of 2 - PCV) 2001 Hepatitis B (1 of 3 - 19+ 3- dose series) 2014 Depression Screening 04/25/2020 04/25/2019 DTaP,Tdap,and Td Vaccines (3 - Td or Tdap) 08/19/2021 08/19/2011, 02/08/2007 *SPIROMETRY ONCE FOR ASTHMA-ADULT 06/17/2022 COVID-19 Vaccine (1 - 2022-2 4 season) 2023 Influenza Vaccine (FLU shot) (#1) 2023 017, 07/01/2006 Pap Smear 07/14/2026 07/14/2023, 12/24, 01/17/2019 GARDASIL-HPV IMMUNIZATION SERIES Completed 08/28/2007, 04/27/2007, 03/02/2007 MENINGOCOCCAL (MENACTRA/MENVEO) Completed 2, 02/08/2007 Gonorrhea / Chlamydia Screen Discontinued , 05/08/2014, 02/24/2011 documented as of this encounter Medical Devices Not on filedocumented as of this encounter Visit Diagnoses Diagnosis Supervision of normal first , antepartum- Primary documented in this encounter Care Teams Waiter/Waitress Cocktail Lounge Relationship Specialty Start Date End Date Sydney Hendricks DO [address] [place] [address] PCP - General Family Medicine 04/26/17 documented as of this encounter
--- OUTSIDE RECORDS SUMMARY | 2024-01-27 20:33 | External Medical Summary | Summary of Care ---
Author Name Unknown Organization [facility] Address [address] [facility] [place] [address] Phone [phone] Care Team Providers Care Hasher Operator Name Role Phone Sydney Hendricks DO Primary Care Provider [phone] Reason for Visit * Reason Comments Return Visit Encounter Details Date Type Department Care Team (Late st Contact Info) Description 08/09/2023 8:15 AM EST Office Visit Gynecology/Obstetric s Justyn Brown [address] [place] [address] Jana Betts CRNP [address] [place] [address] Supervision of normal first , antepartum* Allergies No known active allergiesdocumented as of this encounter (statuses as of 08/09/2023) Medications Medication Sig Dispensed Refills Start Date [...] of skin. 60 mL 5 12/19/2020 Active Clindamycin Phos-Benzoyl Perox 1-5 % External Gel Apply topically to affected area 2 times a day. To affected area (after washing and drying area). 60 g 11 01/06/2023 Active FLUoxetine HCl 10 MG Oral Capsule (PROzac)Indications: HAROON (generalized anxiety disorder) Take 1 Capsule by mouth in the morning. 90 Capsule 1 02/10/2023 Active Complete Oral Capsule Therapy Pack Take by mouth. 0 Active documented as of this encounter (statuses as of 08/09/2023) Active Problems Problem Noted Date Diagnosed Date Supervision of normal first , antepartu m 07/14/2023 Medical marijuana use 08/17/2021 Exercise-induced asthma 02/18/2020 HAROON (generalized anxiety disorder) 06/02/2017 Social anxiety disorder 06/02/2017 Acne Estimated Date of Delivery Comme nts Yes 02/19/2024 Based on last me nstrual period of 05/15/2023 documented as of this encounter (statuses as of 08/09/2023) Resolved Problems Problem Noted Date Diagnosed Date Resolved Date Varicella without complication 09/25/2010 04/24/2018 Overview: Mother states child had disease when she was a baby. Routine child health exam 02/08/2007 Idiopathic scoliosis 02/08/2007 018 documented as of this encounter (statuses as of 08/09/2023) Immunizations Name Administration Dates Next Due HPV [...] the money to buy more. Never true 07/14/20 23 Within the past 12 months, t he food you bought just didn't last and you didn't have money to get more. Never true 07/14/2023 [place] Depression Scale Answer Date Recorded [place] Depression Scale Total 6 07/14/2023 The thought [...] Sign Reading Time Taken Comments Blood Pressure 100/58 08/09/2023 8:28 AM EST Pulse - - Temperature - - Respiratory Rate - - Oxygen Saturation - - Inhaled Oxygen Concentration - - Weight 55.8 kg (123 lb) 08/09/2023 8:28 AM EST Height 160 cm (5' 3") 08/09/2023 8:28 AM EST Body Mass Index 21.79 08/09/2023 8:28 AM EST documented in this encounter Progress Notes * Jana Betts CRNP - 08/09/2023 8:35 AM EST 12w2d Feeling better on increased dose of Prozac. No n/v or bleeding. Declines Qnatal. ALBERT [place] * Katiuska Bob LPN - 08/09/2023 8:26 AM EST 12w2d documented in this encounter Nursing Notes * Katiuska Bob LPN - 08/09/2023 8:27 AM EST 12w2d Doing better with increase in prozac documented in this encounter Plan of Treatment Health Maintenance Due Date Last Done Comments Hepatitis B (1 of 3 - 3-dose series) 1995 COVID-19 Vaccine (#1) 1995 Pneumococcal Vaccine: Pediat rics (0 to 5 Years) and At-Risk Patients (6 to 64 Years) (1 - PCV) 2001 Depression Screening 04/25/2020 04/25/2019 DTaP,Tdap,and Td Vaccines (3 - Td or Tdap) 08/19/2021 08/19/2011, 02/08/2007 *SPIROMETRY ONCE FOR ASTHMA-ADULT 06/17/2022 Influenza Vaccine (FLU shot) (#1) 2023 017, [...] Primary documented in this encounter Care Teams Hasher Operator Relationship Specialty Start Date End Date Sydney Hendricks DO [address] [place] [address] PCP - General Family Medicine 04/26/17 documented as of this encounter
--- OUTSIDE RECORDS SUMMARY | 2024-01-27 20:33 | External Medical Summary | Summary of Care ---
Author Name Unknown Organization [facility] Address [address] [facility] [address] Phone [phone] Care Team Providers Care Exploration Geologist Name Role Phone Sydney Hendricks DO Primary Care Provider [phone] Reason for Visit * Reason Onset Date Comments Medication Refill 09/28/2023 Encounter Details Date Type Department Care Team (Late st Contact Info) Description 09/28/2023 Refill Family Medicine [address] [phone] Sydney Hendricks DO [address] [place] [address] Allergies No known active allergiesdocumented as of this encounter (statuses as of 09/29/2023) Medications Medication Sig Dispensed Refills Start Date End Date Status Albuterol Sulfate (ALBUTEROL HFA) 108 (90 BASE) MCG/ACT inhalerIndications :Acute bronchospasm Inhale 2 Puffs by mouth every 4 hours as needed for Wheezing. 18 g 1 02/13/2020 Active Clindamycin Phosphate 1 % External SolutionIndication s:Acne, unspecified acne type Apply topically to affected area 2 times a day. To affected area of skin. 60 mL 5 12/19/2020 Active FLUoxetine HCl 10 MG Oral Capsule (PROzac)Indication s:HAROON (generalized anxiety disorder) Take 1 Capsule by mouth in the morning. 90 Capsule 1 02/10/2023 Active Complete Oral Capsule Therapy Pack Take by mouth. 0 Active Clindamycin Phos-Benzoyl Perox 1-5 % External Gel Apply topically to affected area 2 times a day. To affected area (after washing and drying area). 60 g 11 09/29/2023 Active Clindamycin Phos-Benzoyl Perox 1-5 % External Gel Apply topically to affected area 2 times a day. To affected area (after washing and drying area). 60 g 11 01/06/2023 4 Discontinue d(Refill) documented as of this encounter (statuses as of 09/29/2023) Active Problems Problem Noted Date Diagnosed Date Supervision of normal first , antepartu m 07/14/2023 Medical marijuana use 08/17/2021 Exercise-induced asthma 02/18/2020 HAROON (generalized anxiety disorder) 06/02/2017 Social anxiety disorder 06/02/2017 Acne Estimated Date of Delivery Comme nts Yes 02/19/2024 Based on last me nstrual period of 05/15/2023 documented as of this encounter (statuses as of 09/29/2023) Resolved Problems Problem Noted Date Diagnosed Date Resolved Date Varicella without complication 09/25/2010 04/24/2018 Overview: Mother states child had disease when she was a baby. Routine child health exam 02/08/2007 Idiopathic scoliosis 02/08/2007 018 documented as of this encounter (statuses as of 09/29/2023) Immunizations Name Administration Dates Next Due HPV [...] money to get more. Never true 07/14/2023 [place] Depression Scale Answer Date Recorded [place] Depression Scale Total 6 07/14/2023 The thought [...] on file documented as of this encounter Miscellaneous Notes * Telephone Encounter - Aretha Nick DO - 09/29/2023 2:48 PM EST Signed Prescriptions: Disp Refills Clindamycin Phos-Benzoyl Perox 1-5 % Exter*60 g 11 Sig: Apply topically to affected area 2 times a day. To affected area (after washing and drying area). Authorizing Provider: ARETHA NICK * Telephone Encounter - Violeta Conley LPN - 09/29/2023 7:15 AM ESTPending Prescriptions: Disp Refills Clindamycin Phos-Benzoyl Perox 1-5 % Exter*60 g 11 Sig: Apply topically to affected area 2 times a day. To affected area (after washing and drying area). * Telephone Encounter - Violeta Conley LPN - 09/29/2023 7:14 AM EST Did you pend patient's preferred pharmacy and medication before forwarding?yes Pharmacy: [id number] [facility] Pending Prescriptions: Disp Refills Clindamycin Phos-Benzoyl Perox 1-5 % Exte*60 g 11 Sig: Apply topically to affected area 2 times a day. To affected area (after washing and drying area). Last Visit: 05/03/2023 (in office), Visit date not found (telemedicine) Next Visit: Visit date not found If no future appointments scheduled, and last appointment is greater than a year ago, please schedule patient for a follow-up appointment Last date the medication was ordered: 01/06/2023 Is this request for a controlled substance?No Urine Drug Screen: Results for orders placed or performed in visit on 02/07/14 TOX SCREEN, URINE, W/ CONFIRMATION Result Value Amphetamine NEGATIVE Barbiturates NEGATIVE Benzodiazepines NEGATIVE Cannabinoids NEGATIVE Cocaine Metabolite NEGATIVE Morphine / Codeine NEGATIVE METHADONE METABOLITE NEGATIVE OXYCODONE NEGATIVE TOX COMMENT THE ABOVE SCREENING RESULTS ARE PRESUMPTIVE AND CAN ONLY BE USED FOR MEDICAL PURPOSES. POSITIVE RESULTS REFLEX TO CONFIRMATORY TESTING. Cutoff Concentration Patient Phone Numbers Labs: Lab Results Component Value Date/Time CREAT 0.94 04/03/2014 12:00 AM POTASSIUM 3.4 (A) 04/03/2014 12:00 AM * Telephone Encounter - Karen Otero - 09/28/2023 6:22 PM ESTPending Prescriptions: Disp Refills Clindamycin Phos-Benzoyl Perox 1-5 % Exter*60 g 11 Sig: Apply topically to affected area 2 times a day. To affected area (after washing and drying area). documented in this encounter Plan of Treatment Upcoming Encounters Date Type Department Care Team (Late st Contact Info) Description 10/04/2023 12:45 PM EDT Imaging Radiology [facility] [facility] [place] [address] 10/04/2023 2:15 PM EDT Office Visit Gynecology/Obstetrics [facility] [address] [place] [address] Jana Betts CRNP [address] [place] [address] Health Maintenance Due Date Last Done Comments [...] filedocumented as of this encounter Care Teams Exploration Geologist Relationship Specialty Start Date End Date Sydney Hendricks DO [address] [place] [address] PCP - General Family Medicine 04/26/17 documented as of this encounter
--- OUTSIDE RECORDS SUMMARY | 2024-01-27 20:33 | External Medical Summary | Summary of Care ---
Author Name Unknown Organization [facility] Address [address] [facility] [place] [address] Phone [phone] Care Team Providers Care Controller Repairer And Tester Name Role Phone Sydney Hendricks DO Primary Care Provider [phone] Reason for Visit * Reason Comments Return Visit Encounter Details Date Type Department Care Team (Late st Contact Info) Description 09/09/2023 11:30 AM EST Office Visit Gynecology/Obstetric s Justyn Brown [address] [place] [address] Lisa Bazzi PA-C [address] [place] [address] Supervision of normal first , antepartum* Allergies No known active allergiesdocumented as of this encounter (statuses as of 09/09/2023) Medications Medication Sig Dispensed Refills Start Date [...] as of this encounter (statuses as of 09/09/2023) Active Problems Problem Noted Date Diagnosed Date Supervision of normal first , antepartu m 07/14/2023 Medical marijuana use 08/17/2021 Exercise-induced asthma 02/18/2020 HAROON (generalized anxiety disorder) 06/02/2017 Social anxiety disorder 06/02/2017 Acne Estimated Date of Delivery Comme nts Yes 02/19/2024 Based on last me nstrual period of 05/15/2023 documented as of this encounter (statuses as of 09/09/2023) Resolved Problems Problem Noted Date Diagnosed Date Resolved Date Varicella without complication 09/25/2010 04/24/2018 Overview: Mother states child had disease when she was a baby. Routine child health exam 02/08/2007 Idiopathic scoliosis 02/08/2007 018 documented as of this encounter (statuses as of 09/09/2023) Immunizations Name Administration Dates Next Due HPV [...] money to get more. Never true 07/14/2023 [place] Depression Scale Answer Date Recorded [place] Depression Scale Total 6 07/14/2023 The thought [...] Sign Reading Time Taken Comments Blood Pressure 108/56 09/09/2023 11:32 AM EST Simultaneous filing. User may not have seen previous data. Pulse - - Temperature - - Respiratory Rate - - Oxygen Saturation - - Inhaled Oxygen Concentration - - Weight 61.2 kg (135 lb) 09/09/2023 11:3 2 AM EST Height 160 cm (5' 3") 09/09/2023 11:32 AM EST Body Mass Index 23.91 09/09/2023 11:32 AM EST documented in this encounter Progress Notes * Lisa Bazzi PA-C - 09/09/2023 11:49 AM EST 16w5d Without complaints. Reviewed anatomy with next visit. Declines genetic testing. Has Jury Duty, unsure if she will be selected yet. Asking if she can do in . Advised okay to see if even selected and dates of trial. If selected and depending on dates, location and duration can discuss further at that time. RTC in 4 weeks Lisa Bazzi PA-C documented in this encounter Nursing Notes * Kamryn Carney LPN - 09/09/2023 11:32 AM EST 16w5d documented in this encounter Plan of Treatment Upcoming Encounters Date Type Department Care Team (Late st Contact Info) Description 10/04/2023 12:45 PM EDT Imaging Radiology [facility] 2nd Floor, [place] [address] [place] [address] 10/04/2023 2:15 PM EDT Office Visit Gynecology/Obstetrics [facility] [address] [place] [address] Jana Betts CRNP [address] [place] [address] Scheduled Orders Name Type Priority Associated Diagnoses Orde r Schedule US PREG SINGLE/1ST GEST, 14 WEEKS OR LATER Medical Imaging Routine Supervision of normal first , antepartum Expected: 10/08/2023 (Approximate), Expires: 10/07/2024 Health Maintenance Due Date Last Done Comments [...] Primary documented in this encounter Care Teams Controller Repairer And Tester Relationship Specialty Start Date End Date Sydney Hendricks DO [address] [place] [address] PCP - General Family Medicine 04/26/17 documented as of this encounter
--- OUTSIDE RECORDS SUMMARY | 2024-01-27 20:33 | External Medical Summary ---
Author Name Unknown Address Unknown Organization [id number]:[facility] - [address] [place] [address] Laboratory Report Ordering Provider Test Date Status ESTEBAN MORLEY 11/29/2023 12:38:58 Final Observation Date Value Abnormality Reference (Units ) Status Treponema pallidum Ab [Presence] in Serum by Immunoassay 11/29/2023 12:38:58 Nonreactive Nonreactive Final No serologic evidence of syp hilis. No additional testing clinicially indicated at this time. Consider repeat testing in 2-4 weeks if acute or primary syphilis is suspected. Performing Location [facility] - [address] [place] [address]
--- OUTSIDE RECORDS SUMMARY | 2024-01-27 20:33 | External Medical Summary | Summary of Care ---
Author Name Unknown Organization [facility] Address [address] [facility] [address] Phone [phone] Care Team Providers Care Telegraph Messenger Name Role Phone Sydney Hendricks DO Primary Care Provider [phone] Reason for Visit * Reason Comments Return Visit Encounter Details Date Type Department Care Team (Late st Contact Info) Description 11/14/2023 10:15 AM EDT Office Visit Gynecology/Obstetric s Justyn Brown [address] [place] [address] Jana Betts CRNP [address] [place] [address] Supervision of normal first , antepartum* Allergies No known active allergiesdocumented as of this encounter (statuses as of 11/14/2023) Medications Medication Sig Dispensed Refills Start Date [...] as of this encounter (statuses as of 11/14/2023) Active Problems Problem Noted Date Diagnosed Date Supervision of normal first , antepartu m 07/14/2023 Medical marijuana use 08/17/2021 Exercise-induced asthma 02/18/2020 HAROON (generalized anxiety disorder) 06/02/2017 Social anxiety disorder 06/02/2017 Acne Estimated Date of Delivery Comme nts Yes 02/19/2024 Based on last me nstrual period of 05/15/2023 documented as of this encounter (statuses as of 11/14/2023) Resolved Problems Problem Noted Date Diagnosed Date Resolved Date Varicella without complication 09/25/2010 04/24/2018 Overview: Mother states child had disease when she was a baby. Routine child health exam 02/08/2007 Idiopathic scoliosis 02/08/2007 018 documented as of this encounter (statuses as of 11/14/2023) Immunizations Name Administration Dates Next Due HPV [...] money to get more. Never true 10/03/2023 [place] Depression Scale Answer Date Recorded [place] Depression Scale Total 6 07/14/2023 The thought [...] Sign Reading Time Taken Comments Blood Pressure 96/68 11/14/2023 10:15 AM EDT Pulse - - Temperature - - Respiratory Rate - - Oxygen Saturation - - Inhaled Oxygen Concentration - - Weight 69.9 kg (154 lb) 11/14/2023 10:15 AM EDT Height 160 cm (5' 3") 11/14/2023 10:15 AM EDT Body Mass Index 27.28 11/14/2023 10:15 AM EDT documented in this encounter Progress Notes * Jana Betts CRNP - 11/14/2023 10:31 AM EDT 26w1d Feeling a soft, tender swollen area in right axilla. Exam reveals no distinct nodules or masses, noerythema. Advised to monitor. No other concerns. Baby is active. No contractions, bleeding, LOF. Glucola with next visit. ALBERT Cherry documented in this encounter Nursing Notes * Kamryn Carney LPN - 11/14/2023 10:21 AM EDT 26w1d Denies concerns. documented in this encounter Plan of Treatment Upcoming Encounters Date Type Department Care Team (Late st Contact Info) Description 11/29/2023 11:20 AM EDT Laboratory Laboratory, [facility] [address] [facility] [place] [address] [facility] [place] [address] 11/29/2023 11:45 AM EDT Office Visit Gynecology/Obstetrics [facility] [address] [place] [address] [place], ALBERT Chanel [address] [place] [address] Scheduled Orders Name Type Priority Associated Diagnoses Orde r Schedule 50-G GESTATIONAL GLUCOSE, 1 HOUR Lab Routine Supervision of normal first , antepartum Expected: 11/28/2023 (Approximate), Expires: 11/13/2024 CBC WITH WBC DIFFERENTIAL AND ANEMIA REFLEX WORKUP Lab Routine Supervision of normal first , antepartum Expected: 11/28/2023 (Approximate), Expires: 11/13/2024 SYPHILIS ANTIBODY SCREEN WITH REFLEX TO RPR Lab Routine Supervision of normal first , antepartum Expected: 11/28/2023 (Approximate), Expires: 11/13/2024 Health Maintenance Due Date Last Done Comments Pneumococcal Vaccine: Pediat rics (0 to 5 Years) and At-Risk Patients (6 to 64 Years) (1 of 2 - PCV) 2001 Hepatitis B (1 of 3 - 19+ 3- dose series) 2014 Depression Screening 04/25/2020 04/25/2019 DTaP,Tdap,and Td Vaccines (3 - Td or Tdap) 08/19/2021 08/19/2011, 02/08/2007 *SPIROMETRY ONCE FOR ASTHMA-ADULT 06/17/2022 COVID-19 Vaccine (2022-2 4 season) 2023 Influenza Vaccine (FLU shot) (Season Ended) 2024 05/23/2017, 07/01/2006 Pap Smear 07/14/2026 07/14/2023, 12/24, 01/17/2019 GARDASIL-HPV IMMUNIZATION SERIES Completed 08/28/2007, 04/27/2007, 03/02/2007 MENINGOCOCCAL (MENACTRA/MENVEO) Completed 2, 02/08/2007 Gonorrhea / Chlamydia Screen Discontinued , 05/08/2014, 02/24/2011 documented as of this encounter Medical Devices Not on filedocumented as of this encounter Visit Diagnoses Diagnosis Supervision of normal first , antepartum- Primary documented in this encounter Care Teams Telegraph Messenger Relationship Specialty Start Date End Date Sydney Hendricks DO [address] [place] [address] PCP - General Family Medicine 04/26/17 documented as of this encounter
--- OUTSIDE RECORDS SUMMARY | 2024-01-27 20:33 | External Medical Summary ---
Author Name Unknown Address Unknown Organization [id number][facility] [address] [place] [address] Laboratory Report Ordering Provider Test Date Status MINDY PICKARD 11/29/2023 12:38:58 Final Observation Date Value Abnormality Reference (Units ) Status Heterophile Ab [Presence] in Blood by Immunoassay 11/29/2023 12:38:58 Negative Negative Final Performing Location [facility] [address] [place] [address]
--- OUTSIDE RECORDS SUMMARY | 2024-01-27 20:33 | External Medical Summary | Summary of Care ---
Author Name Unknown Organization [facility] Address [address] [facility] [place] [address] Phone [phone] Care Team Providers Care Security Escort Name Role Phone Pancho Chapa DO Primary Care Provider [phone] Reason for Visit * Reason Comments eRx-Medication Refill Encounter Details Date Type Department Care Team (Late st Contact Info) Description 10/08/2023 Refill Family Medicine [address] [address] Pancho Chapa DO [address] [place] [address] HAROON (generalized anxiety disorder) Allergies No known active allergiesdocumented as of this encounter (statuses as of 10/10/2023) Medications Medication Sig Dispensed Refills Start Date [...] Oral Capsule (PROzac)Indication s:HAROON (generalized anxiety disorder) TAKE 1 CAPSULE BY MOUTH EVERY MORNING 90 Capsule 3 10/10/2023 Active FLUoxetine HCl 10 MG Oral Capsule (PROzac)Indication s:HAROON (generalized anxiety disorder) Take 1 Capsule by mouth in the morning. 90 Capsule 1 02/10/2023 4 Discontinued documented as of this encounter (statuses as of 10/10/2023) Active Problems Problem Noted Date Diagnosed Date Supervision of normal first , antepartu m 07/14/2023 Medical marijuana use 08/17/2021 Exercise-induced asthma 02/18/2020 HAROON (generalized anxiety disorder) 06/02/2017 Social anxiety disorder 06/02/2017 Acne Estimated Date of Delivery Comme nts Yes 02/19/2024 Based on last me nstrual period of 05/15/2023 documented as of this encounter (statuses as of 10/10/2023) Resolved Problems Problem Noted Date Diagnosed Date Resolved Date Varicella without complication 09/25/2010 04/24/2018 Overview: Mother states child had disease when she was a baby. Routine child health exam 02/08/2007 Idiopathic scoliosis 02/08/2007 018 documented as of this encounter (statuses as of 10/10/2023) Immunizations Name Administration Dates Next Due HPV [...] money to get more. Never true 10/03/2023 [place] Depression Scale Answer Date Recorded [place] Depression Scale Total 6 07/14/2023 The thought [...] encounter Miscellaneous Notes * Telephone Encounter - Pancho Chapa DO - 10/10/2023 11:39 AM EDTSigned Prescriptions: Disp Refills FLUoxetine HCl 10 MG Oral Capsule (PROzac) 90 Cap*3 Sig: TAKE 1 CAPSULE BY MOUTH EVERY MORNING Authorizing Provider: PANCHO CHAPA * Telephone Encounter - Christina Solorio [facility] - 10/10/2023 10:27 AM EDTPending Prescriptions: Disp Refills FLUoxetine HCl 10 MG Oral Capsule (PROzac) 90 Cap*3 Sig: TAKE 1 CAPSULE BY MOUTH EVERY MORNING * Telephone Encounter - Christina Solorio RP - 10/10/2023 10:26 AM EDT Patient did not meet protocol requirements ( within the past year). Please approve if appropriate. Pending Prescriptions: Disp Refills FLUoxetine HCl 10 MG Oral Capsule (PROzac) 90 Cap*3 Sig: TAKE 1 CAPSULE BY MOUTH EVERY MORNING 05/03/2023 (in office), Visit date not found (telemedicine) Visit date not found If no future appointments scheduled, and last appointment is greater than a year ago, please schedule patient for a follow-up appointment Last date the medication was ordered: 02/10/23 Pharmacy: [id number] [facility] Is this request for a controlled substance?No [...] 04/03/2014 12:00 AM * Telephone Encounter - Interface, [facility] - 10/10/2023 5:35 AM EDT Pending Prescriptions: Disp Refills FLUoxetine HCl 10 MG Oral Capsule [Pharmac*90 Cap*0 Sig: TAKE 1CAPSULE BY MOUTH EVERY MORNING documented in this encounter Plan of Treatment [...] as of this encounter Visit Diagnoses Diagnosis HAROON (generalized anxiety disorder) Generalized anxiety disorder documented in this encounter Care Teams Security Escort Relationship Specialty Start Date End Date Pancho Chapa DO [address] [place] [address] PCP - General Family Medicine 04/26/17 documented as of this encounter
--- OUTSIDE RECORDS SUMMARY | 2024-01-27 20:33 | External Medical Summary ---
Author Name Unknown Address Unknown Organization K01:[facility] - [facility] [address] [place] [id number] Laboratory Report Ordering Provider Test Date Status ESTEBAN MORLEY 11/29/2023 12:38:58 Final Observation Date Value Abnormality Reference (Units ) Status Creatinine 11/29/2023 12:38:58 0.6 0.5-1.0 (mg/dL) Final Glomerular filtration rate/1.73 sq M.predicted [Volume Rate/Area] in Serum, Plasma or Blood by Creatinine-based formula (CKD-EPI) 11/29/2023 12:38:58 >90 >=60 (mL/min) Final eGFR is calculated based on the CKD-EPI 2020 equation Performing Location [facility] - [address] [place] [address]
--- NOTE | 2024-01-27 21:08 | History & Physical Report ---
Date of Service January 27, 2024 Assessment & Plan (1) Urinary tract infection: Plan: Cath urine for culture and sensitivity. Ampicillin 1 g IV every 8 hours. (2) Active labor: Plan: IV fluids. IV pain medication. Observation. Admission and Anticipated Discharge Date Admission Date: January 27, 2024 History of Present Illness Chief Complaint: Intrauterine 36 weeks 5 days gestation. Patient's been followed by [facility] for care and delivery. Her due date 02/19/2024. Her beta strep screen was negative. She called the office with abdominal pain that was keeping her awake at night. She stated the went away for short period of time. Then they woke her up this morning. The time of admission she was having pain every 4 to 5 minutes. And she had a active labor pattern on the monitor. Her exam on admission was a vertex at a -1 station cervix was posterior. On admission was about 2 cm. She contracted off-and-on during the day. Was checked several times. Her last check revealed the cervix to be approximately 4 cm posterior. 90% effaced. And a bloody show. There was concern that she had a urinary tract infection. A femme cath was ordered. And ampicillin 1 g every 8 hours was ordered. Also during the day she had a milligram of Stadol IV on 3 different occasions. Her last check revealed her contractions to be spacing out and now she was skipping contractions as long as every 5 to 7 minutes. Primary Care Provider: NO PCP Patient 28-year-old 1 para 0 good general health due date 02/19/2024 no problems. Strep culture was negative. Called the office because she was having abdominal pain that kept her awake at night. She stated that they let up for short period of time. She was admitted to the hospital. Initial check was vertex posterior 2 cm about 80 to 90% effaced. Her last check revealed her to be 4 cm posterior 80 to 90% effaced. With some bloody show. Allergies Allergy/AdvReac Type Severity Reaction Status Date / Time No Known Allergies Allergy Unverified 02/01/17 04:18 Home Medications Medication Instructions Recorded Confirmed Type Acetaminophen (Tylenol) 1,000 mg PO Q4 PRN Pain or Fever 02/01/17 History #0 tabs Past Med/Surg History Problem List (Updated 01/27/24 @ 21:07 by Daniel Ghosh MD) Active labor Urinary tract infection Asthma (Chronic) Blurry vision (Acute) Blurry vision (Acute) Medical History (Updated 01/27/24 @ 21:07 by Daniel Ghosh MD) No known health problems Surgical History (Updated 01/27/24 @ 14:55 by Carol Nick RN) No history of previous surgery Social History Smoking Status: Former smoker Tobacco Type: E-cigarettes / Vaping Do You Dip or Chew Tobacco: No; Hx Alcohol Use: No Hx Substance Use: No Beliefs That Will Affect Care: None marital status: Current Living Situation: Spouse Other Information That Helps Us Care for You: No Feels Safe at Home: Yes Safety Concerns: Feels Safe At This Time Assistive Devices: None Physical Exam Physical Exam: Vertex presentation. -1 station. Cervix posterior. 4 cm dilated. Moderate amount of bloody show. Results & Data Results & Data Vital Signs (Past 12 Hours) Vital Signs Temp Pulse Resp BP 01/27/24 19:06 37.0 C 01/27/24 19:01 106 H 138/81 01/27/24 18:34 107 H 18 135/84 01/27/24 14:53 89 135/72 01/27/24 14:53 37.0 C 20 Medications Administered Ampicillin 1 g IV every 8 hours. Code Status & VTE Plan VTE Prophylaxis Plan VTE Prophylaxis will be ordered: No Reason for no VTE drug order: Treatment not indicated
--- NOTE | 2024-01-27 21:10 | History & Physical Report ---
Date of Service January 27, 2024 Assessment & Plan Admission and Anticipated Discharge Date Admission Date: January 27, 2024 History of Present Illness Primary Care Provider: NO PCP Allergies Allergy/AdvReac Type Severity Reaction Status Date / Time No Known Allergies Allergy Unverified 02/01/17 04:18 Home Medications Medication Instructions Recorded Confirmed Type Acetaminophen (Tylenol) 1,000 mg PO Q4 PRN Pain or Fever 02/01/17 History #0 tabs Past Med/Surg History Problem List (Updated 01/27/24 @ 21:07 by Daniel Ghosh MD) Active labor Urinary tract infection Asthma (Chronic) Blurry vision (Acute) Blurry vision (Acute) Medical History (Updated 01/27/24 @ 21:07 by Daniel Ghosh MD) No known health problems Surgical History (Updated 01/27/24 @ 14:55 by Carol Nick RN) No history of previous surgery Social History Smoking Status: Former smoker Tobacco Type: E-cigarettes / Vaping Do You Dip or Chew Tobacco: No; Hx Alcohol Use: No Hx Substance Use: No Beliefs That Will Affect Care: None marital status: Current Living Situation: Spouse Other Information That Helps Us Care for You: No Feels Safe at Home: Yes Safety Concerns: Feels Safe At This Time Assistive Devices: None Results & Data Results & Data Vital Signs (Past 12 Hours) Vital Signs Temp Pulse Resp BP 01/27/24 19:06 37.0 C 01/27/24 19:01 106 H 138/81 01/27/24 18:34 107 H 18 135/84 01/27/24 14:53 89 135/72 01/27/24 14:53 37.0 C 20 Code Status & VTE Plan VTE Prophylaxis Plan VTE Prophylaxis will be ordered: No Reason for no VTE drug order: Treatment not indicated
[2024-01-27] MEDS: AMPICILLIN 1,000 MG in SODIUM CHLOR 0.9% MINI-B 100 ML IV SCH (21:33)
[2024-01-27 21:53] LABS: Appearance Urine Turbid (Clear); Bacteria Urine Automated 2+ (None Seen); Bilirubin Urine Negative (Negative); Blood Urine 3+ (Negative); Color Urine Orange; Glucose Urine UA Negative (Negative); Ketones Urine Negative (Negative); Leukocyte Esterase Urine 3+ (Negative); Nitrite Urine Positive (Negative); Protein Urine 3+ (Negative); RBC Urine Automated >20 /hpf (0-2); Specific Gravity Urine 1.019 (1.000-1.030); Urobilinogen Urine Negative (Negative); WBC Urine Automated >50 /hpf (0-5); pH Urine 6.5 (4.5-7.5)
[2024-01-27 21:54] LABS: Cast Urine Automated 0-2 /lpf (0-2)
[2024-01-27] MEDS ORDERED: AMPICILLIN SOD 1 GM VIAL IV SCH (22:00)
[2024-01-28] MEDS ORDERED: cephALEXin 500 MG CAP PO SCH
--- NOTE | 2024-01-28 08:44 | Obstetrical Progress Note ---
Date of Service January 28, 2024 Assessment & Plan Admission and Anticipated Discharge Date Admission Date: January 27, 2024 Subjective Patient seen and examined. She is a 22-year-old at 36 weeks and 6 days of gestation who came in yesterday afternoon with uterine contractions and pain with urination. She was having regular contractions every 1 to 2 minutes for few hours and her urine looked cloudy with leukocytes and bacteria on microscopic exam suggesting UTI. She was admitted by Dr. Ghosh for observation. Her cervix changed from 1 cm to 4 cm per him. She was given Stadol for pain which did not help much, also started on ampicillin 1 gram every 6 hours. Patient states her urinary pain is better, she is still having contractions, unable to sleep all night. She states she only got half an hour sleep and feels tired. She also noted bloody discharge on toilet paper this morning after she urinated. it is in the bathroom and there is about 5 x 10 cm long sized red area on the tied off toiletpaper. Her is uncomplicated except anxiety for which she takes Prozac 20 mg daily, GBS negative, She denies medical problems, history of STDs including chlamydia gonorrhea herpes, smoking alcohol or drug use. I checked her cervix now and it is 5 cm dilated, 70% effaced, head is -1 with a tight bulging bag, no active bleeding. heart rate is slightly tachycardic with baseline between 150s to 60s and good accelerations, moderate variability and no decelerations. it seems like she is in early labor with bloody show, cervical change. We discussed about pain management patient plans to get epidural but not for now she wants to ambulate eat and light breakfast and then will get epidural. Plan to keep her for labor switch to Rocephin for UTI until urine culture is back. All questions were answered. Results & Data Vital Signs (Past 12 Hours) Vital Signs Temp Pulse Resp BP 01/28/24 07:09 96 H 110/68 01/28/24 05:32 101 H 103/59 L 01/28/24 05:30 18 01/28/24 05:30 37.2 C 18 01/28/24 02:08 98 H 122/63 01/28/24 02:00 18 01/28/24 02:00 37.2 C 18 01/27/24 22:43 116 H 126/74 01/27/24 22:41 20 01/27/24 22:41 37.2 C 20
[2024-01-28] MEDS: cefTRIAXone SODIUM 1,000 MG/50 ML BAG IV SCH (09:30)
[2024-01-28] MEDS ORDERED: cephALEXin 500 MG CAP PO STA (16:31)
--- NOTE | 2024-01-28 16:44 | Obstetrical Progress Note ---
Date of Service January 28, 2024 Assessment & Plan Admission and Anticipated Discharge Date Admission Date: January 27, 2024 Subjective Patient is reevaluated She feels much better, no more contractions since I checked her this morning No LOF Blood show was less on paper +FM FHR categ I TOCO no ctxs for hours, few irregular ctxs, patient does not feel them VE; 4/ 60%/ -2, ballotable, membranes are not bulging anymore, definitely has not progressed since this morning, even less dilated and less effaced Lab Results 01/27/24 01/27/24 Range/Units 15:48 21:12 WBC 13.64 H (4.8-10.8) K/ul RBC 3.92 L (4.20-5.40) M/uL Hgb 10.9 L (12.0-16.0) g/dl Hct 33.9 L (37.0-47.0) % MCV 86.5 (80.0-100.0) fL MCH 27.8 (25.0-34.0) pg MCHC 32.2 (32.0-36.0) g/dL RDW Std Deviation 39.0 (36.4-46.3) fL RDW Coeff of Khadra 12.5 (11.5-14.5) % Plt Count 239 (130-400) K/uL MPV 9.9 (9.4-12.4) fL Urine Color [place] Urine Appearance Turbid A (Clear) Urine pH 6.5 (4.5-7.5) Ur Specific Jackson 1.019 (1.000-1.030) Urine Protein 3+ H (Negative) Urine Glucose (UA) Negative (Negative) Urine Ketones Negative (Negative) Urine Blood 3+ H (Negative) Urine Nitrite Positive A (Negative) Urine Bilirubin Negative (Negative) Urine Urobilinogen Negative (Negative) Ur Leukocyte Esterase 3+ H (Negative) Urine WBC (Auto) >50 H (0-5) /hpf Urine RBC (Auto) >20 H (0-2) /hpf U Hyaline Cast (Auto) 0-2 (0-2) /lpf U Epithel Cells (Auto) 6-10 H (0-2) /hpf Urine Bacteria (Auto) 2+ H (None Seen) Urine cx: Gram negative bacilli + Final report pending Discussed the findings of not in active labor and prematurity Discussed longer observation here in hospital vs going home, she desires to go home and come back if she starts lisa again. Discussed activity, pelvic rest and when to call Keflex PO q 6 hours until urine cx will be finalized. All questions were answered. Results & Data Vital Signs (Past 12 Hours) Vital Signs Temp Pulse Resp BP 01/28/24 14:02 101 H 110/61 01/28/24 14:01 18 01/28/24 14:01 36.7 C 18 01/28/24 11:03 100 H 119/70 01/28/24 09:42 18 01/28/24 09:42 37.4 C 18 01/28/24 07:09 96 H 110/68 01/28/24 05:32 101 H 103/59 L 01/28/24 05:30 18 01/28/24 05:30 37.2 C 18
[2024-01-28] MEDS ORDERED: cephALEXin 500MG HOME PACK PO SCH (18:00)
== END 2024-01-28 16:50 | disposition home health service (06) | DRG 832 ==
LOC: OPB 14:48 → 4S1 14:51
DX: Z87.891 Personal history of nicotine dependence; F41.9 Anxiety disorder, unspecified; O99.343 Other mental disorders complicating pregnancy, third trimester; N39.0 Urinary tract infection, site not specified; O23.43 Unspecified infection of urinary tract in pregnancy, third trimester; Z3A.36 36 weeks gestation of pregnancy; Z79.899 Other long term (current) drug therapy

== ENCOUNTER 2024-02-21 07:31 | Inpatient (IN) ==
--- OUTSIDE RECORDS SUMMARY | 2024-02-21 07:47 | External Medical Summary | Summary of Care ---
Author Name Unknown Organization [facility] Address [address] [address] Phone [phone] Care Team Providers Care Mobile Heavy Equipment Operator Name Role Phone Sydney Hendricks DO Primary Care Provider [phone] Reason for Visit * Reason Comments Return Visit Encounter Details Date Type Department Care Team (Late st Contact Info) Description 01/31/2024 11:15 AM EDT Office Visit Gynecology/Obstetric s Justyn Brown [address] [place] [address] Jana Betts CRNP [address] [place] [address] Supervision of normal first , antepartum* Allergies No known active allergiesdocumented as of this encounter (statuses as of 01/31/2024) Medications Medication Sig Dispensed Refills Start Date [...] breast pump. Dx:Z39.1 1 Each 01/10/2024 Active Cephalexin 500 MG Oral Capsule (Keflex) Take 1 Capsule by mouth in the morning and 1 Capsule before bedtime. X4 a day . 01/28/2024 Active documented as of this encounter (statuses as of 01/31/2024) Active Problems Problem Noted Date Diagnosed Date Supervision of normal first , antepartu m 07/14/2023 Medical marijuana use 08/17/2021 Exercise-induced asthma 02/18/2020 HAROON (generalized anxiety disorder) 06/02/2017 Social anxiety disorder 06/02/2017 Acne Estimated Date of Delivery Comme nts Yes 02/19/2024 Based on last me nstrual period of 05/15/2023 documented as of this encounter (statuses as of 01/31/2024) Resolved Problems Problem Noted Date Diagnosed Date Resolved Date Varicella without complication 09/25/2010 04/24/2018 Overview: Mother states child had disease when she was a baby. Routine child health exam 02/08/2007 Idiopathic scoliosis 02/08/2007 018 documented as of this encounter (statuses as of 01/31/2024) Immunizations Name Administration Dates Next Due HPV Vaccine, 4-Valent 08/28/2007,04/27/2007,08/0 03/2007 Meningococcal Conjugate Vacc ine (Menactra/Menveo) 08/19/2011,02/08/2007 PPD 04/27/2023,,05/03/2022,12/04,11/26/2019,10/16/2018,03/05/2014 ,02/09/2014 Seasonal Influenza, Quadriva lent, No Preserve, [...] money to get more. Never true 10/03/2023 [place] Depression Scale Answer Date Recorded [place] Depression Scale Total 5 11/29/2023 The thought [...] Sign Reading Time Taken Comments Blood Pressure 108/72 01/31/2024 11:16 AM EDT Pulse - - Temperature - - Respiratory Rate - - Oxygen Saturation - - Inhaled Oxygen Concentration - - Weight 84.4 kg (186 lb) 01/31/2024 11:16 AM EDT Height - - Body Mass Index 32.95 01/24/2024 2:04 PM EDT documented in this encounter Progress Notes * Jana Betts CRNP - 01/31/2024 12:18 PM EDT 37w2d Was at L&D Tuesday to Tuesday, was having contractions, dx with UTI. Currently on Keflex and feeling better. States she was 4-5cm dilated at the hospital. No longer with contractions, still with pressure. No other concerns. Baby is active. No bleeding or LOF. ALBERT Cherry * Linda Winchester MED ASSIST - 01/31/2024 11:16 AM EDT 37w2d + movements Was having bleeding but no rupture of membrane Have a clump of mucus plug yesterday with blood tinge In hospital Tuesday into Tuesday. Having pelvic pressure, urine done in [place]. On Keflex UTI confirmed Feeling better but tired and sore [facility] cervical check 4-5cm dilated documented in this encounter Plan of Treatment Upcoming Encounters Date Type Department Care Team (Late st Contact Info) Description 02/10/2024 2:30 PM EDT Office Visit Gynecology/Obstetrics Justyn Brown [address] [place] [address] Jana Betts CRNP [address] [place] [address] Health Maintenance Due Date Last Done Comments [...] Primary documented in this encounter Care Teams Mobile Heavy Equipment Operator Relationship Specialty Start Date End Date Sydney Hendricks DO [address] [place] [address] PCP - General Family Medicine 04/26/17 documented as of this encounter
--- OUTSIDE RECORDS SUMMARY | 2024-02-21 07:47 | External Medical Summary ---
Author Name Unknown Address Unknown Organization K01:[facility] [place] - [address] [place], [place] [address] Laboratory Report Ordering Provider Test Date Status ESTEBAN MORLEY 01/27/2024 10:16:40 Final Observation Date Value Abnormality Reference (Units ) Status Bacteria identified in Specimen by Culture 01/27/2024 10:16:40 [id number]^ESCHE RICHIA COLI Abnormal Final >100,000 colonies/mL Escheri parisa coli Performing Location LABORATORY C - [address] [place], [place] [address] Ordering Provider Test Date Status ESTEBAN MORLEY 01/27/2024 10:16:40 Final Observation Date Value Abnormality Reference (Units ) Status Ampicillin 01/27/2024 10:16:40 <=2 Susceptible Final Cefazolin 01/27/2024 10:16:40 <=4 Susceptible Final Cefepime susceptibility 01/27/2024 10:16:40 <=1 Susceptible Final Ceftriaxone suceptibility 01/27/2024 10:16:40 <=1 Susceptible Final Ciprofloxacin 01/27/2024 10:16:40 <=0.25 Susceptible Final Due to serious side effects, the FDA has advised against using Ciprofloxacin to treat uncomplicated UTIs and respiratory tract infections unless there are no alternative treatment options. Gentamicin susceptibility 01/27/2024 10:16:40 <=1 Susc eptible Final Nitrofurantoin susceptibility 01/27/2024 10:16:40 <=16 Susceptible Final Piperacillin + Tazobactamsusceptibility 01/27/2024 10:16:40 <=4 Susceptible Final TMP-SMZ susceptibility 01/27/2024 10:16:40 <=20 Suscept ible Final Test: Culture, Urine, Quanti tative
Specimen Source: Urine, Clean Catch
Specimen Type: Urine
Specimen Date: 01/27/2024 1016
Result Date: 01/29/2024 1030
Result Status: Final result
Abnormal: Yes
Resulting Lab: [facility]
[address]
[place] [address]

CULTURE

>100,000 colonies/mL Escherichia coli (Abnormal)

SUSCEPTIBILITY

Escherichia coli
METHOD MICROBROTH
DILUTIONS

AMPICILLIN <=2 Susceptible
CEFAZOLIN <=4 Susceptible
CEFEPIME <=1 Susceptible
CEFTRIAXONE <=1 Susceptible
CIPROFLOXACIN <=0.25 Susceptible
[1]
GENTAMICIN <=1 Susceptible
NITROFURANTOIN <=16 Susceptible
PIPERACILLIN TAZOBACTAM <=4 Susceptible
TRIMETH/SULFAMETHOXAZOLE <=20 Susceptible

[1] Due to serious side effects, the FDA has advised against using
Ciprofloxacin to treat uncomplicated UTIs and respiratory tract infections
unless there are no alternative treatment options.

null Performing Location [facility] - [address] [place], [place] [address]
--- OUTSIDE RECORDS SUMMARY | 2024-02-21 07:47 | External Medical Summary | Summary of Care ---
Author Name Unknown Organization [facility] Address [address] [facility] [place] [address] Phone [phone] Care Team Providers Care Finish Machine Tender Name Role Phone Sydney Hendricks DO Primary Care Provider [phone] Reason for Visit * Reason Comments Return Visit Encounter Details Date Type Department Care Team (Late st Contact Info) Description 02/10/2024 2:30 PM EDT Office Visit Gynecology/Obstetric s Justyn Brown [address] [place] [address] Jana Betts CRNP [address] [place] [address] Supervision of normal first , antepartum* Allergies No known active allergiesdocumented as of this encounter (statuses as of 02/10/2024) Medications Medication Sig Dispensed Refills Start Date [...] as of this encounter (statuses as of 02/10/2024) Active Problems Problem Noted Date Diagnosed Date Supervision of normal first , antepartu m 07/14/2023 Medical marijuana use 08/17/2021 Exercise-induced asthma 02/18/2020 HAROON (generalized anxiety disorder) 06/02/2017 Social anxiety disorder 06/02/2017 Acne Estimated Date of Delivery Comme nts Yes 02/19/2024 Based on last me nstrual period of 05/15/2023 documented as of this encounter (statuses as of 02/10/2024) Resolved Problems Problem Noted Date Diagnosed Date Resolved Date Varicella without complication 09/25/2010 04/24/2018 Overview: Mother states child had disease when she was a baby. Routine child health exam 02/08/2007 Idiopathic scoliosis 02/08/2007 018 documented as of this encounter (statuses as of 02/10/2024) Immunizations Name Administration Dates Next Due HPV [...] money to get more. Never true 10/03/2023 [place] Depression Scale Answer Date Recorded [place] Depression Scale Total 5 11/29/2023 The thought [...] Sign Reading Time Taken Comments Blood Pressure 120/68 02/10/2024 2:21 PM EDT Pulse - - Temperature - - Respiratory Rate - - Oxygen Saturation - - Inhaled Oxygen Concentration - - Weight - - Height 160 cm (5' 3") 02/10/2024 2:21 PM EDT Body Mass Index - - documented in this encounter Progress Notes * Jana Betts CRNP - 02/10/2024 2:32 PM EDT 38w5d No concerns. Having some BH contractions, nothing painful. Baby is active, no bleeding or LOF. Lastweek at L&D was told she was 4/5cm, would like cervical check today. On exam, 3-/-3 IOL 02/20 Paraprofessional Education Assistant Documentation Provider requested pickler helper. Name of pickler helper: ALBERT Nuñez * Katiuska Bob LPN - 02/10/2024 2:21 PM EDT 38w5d Ok with iol documented in this encounter Plan of Treatment [...] Primary documented in this encounter Care Teams Finish Machine Tender Relationship Specialty Start Date End Date Sydney Hendricks DO [address] [facility] [place] [address] PCP - General Family Medicine 04/26/17 documented as of this encounter
--- OUTSIDE RECORDS SUMMARY | 2024-02-21 07:47 | External Medical Summary | Summary of Care ---
Author Name Unknown Organization [facility] Address [address] [place] [address] Phone [phone] Care Team Providers Care Band Top Maker Name Role Phone Sydney Hendricks DO Primary Care Provider [phone] Reason for Visit * Reason Comments Return Visit Encounter Details Date Type Department Care Team (Late st Contact Info) Description 02/17/2024 3:00 PM EDT Office Visit Gynecology/Obstetric s Justyn Brown [address] [place] [address] BackNancy whalen CRNP [address] [place] [address] Supervision of normal first , antepartum*; Anxiety during Allergies No known active allergiesdocumented as of this encounter (statuses as of 02/17/2024) Medications Medication Sig Dispensed Refills Start Date [...] before bedtime. X4 a day . 01/28/2024 Discontinue d(Medicatio n List Clean Up) documented as of this encounter (statuses as of 02/17/2024) Active Problems Problem Noted Date Diagnosed Date Anxiety during 02/17/2024 Supervision of normal first , antepartu m 07/14/2023 Medical marijuana use 08/17/2021 Exercise-induced asthma 02/18/2020 HAROON (generalized anxiety disorder) 06/02/2017 Social anxiety disorder 06/02/2017 Acne Estimated Date of Delivery Comme nts Yes 02/19/2024 Based on last me nstrual period of 05/15/2023 documented as of this encounter (statuses as of 02/17/2024) Resolved Problems Problem Noted Date Diagnosed Date Resolved Date Varicella without complication 09/25/2010 04/24/2018 Overview: Mother states child had disease when she was a baby. Routine child health exam 02/08/2007 Idiopathic scoliosis 02/08/2007 018 documented as of this encounter (statuses as of 02/17/2024) Immunizations Name Administration Dates Next Due HPV [...] money to get more. Never true 10/03/2023 [place] Depression Scale Answer Date Recorded [place] Depression Scale Total 5 11/29/2023 The thought [...] Sign Reading Time Taken Comments Blood Pressure 128/82 02/17/2024 2:48 PM EDT Pulse - - Temperature - - Respiratory Rate - - Oxygen Saturation - - Inhaled Oxygen Concentration - - Weight 84.8 kg (187 lb) 02/17/2024 2:48 PM EDT Height 160 cm (5' 3") 02/17/2024 2:48 PM EDT Body Mass Index 33.13 02/17/2024 2:48 PM EDT documented in this encounter Progress Notes * Nancy Rodriguez CRNP - 02/17/2024 2:53 PM EDT 39w5d Baby is moving well. Some ctx, nothing consistent. No bleeding/leaking. Has post-dates induction scheduled. Membrane sweep done per pt request - 4cm dilated, cephalic. Advised to expect cramping, spotting. Call with signs of labor or decreased FM. Momd Teacher Documentation Provider requested pack train driver. Name of pack train driver: ALBERT Dee documented in this encounter Nursing Notes * Kamryn Carney LPN - 02/17/2024 2:52 PM EDT 39w5d Would like membrane sweep Iol scheduled 02/20 documented in this encounter Plan of Treatment [...] Supervision of normal first , antepartum- Primary Anxiety during documented in this encounter Care Teams Band Top Maker Relationship Specialty Start Date End Date Sydney Hendricks DO [address] [place] [address] PCP - General Family Medicine 04/26/17 documented as of this encounter
--- OUTSIDE RECORDS SUMMARY | 2024-02-21 07:47 | External Medical Summary | Summary of Care ---
Author Name Unknown Organization [facility] Address [address] [place] [address] Phone [phone] Care Team Providers Care Ice Delivery Driver Name Role Phone Sydney Hendricks DO Primary Care Provider [phone] Reason for Visit * Reason Onset Date Comments Test Results 01/30/2024 Encounter Details Date Type Department Care Team (Late st Contact Info) Description 01/30/2024 Refill Gynecology/Obstetrics [facility] [address] [place] [id number] Jana Betts CRNP [address] [place] [address] Allergies No known active allergiesdocumented as of this encounter (statuses as of 02/02/2024) Medications Medication Sig Dispensed Refills Start Date [...] as of this encounter (statuses as of 02/02/2024) Active Problems Problem Noted Date Diagnosed Date Supervision of normal first , antepartu m 07/14/2023 Medical marijuana use 08/17/2021 Exercise-induced asthma 02/18/2020 HAROON (generalized anxiety disorder) 06/02/2017 Social anxiety disorder 06/02/2017 Acne Estimated Date of Delivery Comme nts Yes 02/19/2024 Based on last me nstrual period of 05/15/2023 documented as of this encounter (statuses as of 02/02/2024) Resolved Problems Problem Noted Date Diagnosed Date Resolved Date Varicella without complication 09/25/2010 04/24/2018 Overview: Mother states child had disease when she was a baby. Routine child health exam 02/08/2007 Idiopathic scoliosis 02/08/2007 018 documented as of this encounter (statuses as of 02/02/2024) Immunizations Name Administration Dates Next Due HPV [...] money to get more. Never true 10/03/2023 [place] Depression Scale Answer Date Recorded [place] Depression Scale Total 5 11/29/2023 The thought [...] encounter Miscellaneous Notes * Telephone Encounter - Malinda Rivas RN - 02/02/2024 3:10 PM EDT Patient called in. Made aware of below. Patient states that she went to Urgent care over the weekend and they prescribed her keflex for UTI. She is feeling better with this medication . Patient was advise to make aware if symptoms do not improve or if they return after completion of medication . * Telephone Encounter - Puja Ballesteros LPN - 02/02/2024 9:48 AM EDT left message for patient to call office * Telephone Encounter - Tata Hernandez RN - 01/30/2024 2:38 PM EDT left message for patient to call office * Telephone Encounter - Jana Betts CRNP - 01/30/2024 9:20 AM EDT Please notify pt that she has a UTI. Ask pharmacy preference so I can send antibiotic. documented in this encounter Plan of Treatment Upcoming Encounters Date Type Department Care Team (Late st Contact Info) Description 02/10/2024 2:30 PM EDT Office Visit Gynecology/Obstetrics Justyn Brown [address] [place] [address] Jana Betts CRNP [address] [place] [address] Health Maintenance Due Date Last Done Comments [...] filedocumented as of this encounter Care Teams Ice Delivery Driver Relationship Specialty Start Date End Date Sydney Hendricks DO [address] [place] [address] PCP - General Family Medicine 04/26/17 documented as of this encounter
--- OUTSIDE RECORDS SUMMARY | 2024-02-21 07:47 | External Medical Summary | Summary of Care ---
Author Name Unknown Organization [facility] Address [address] [place] [address] Phone [phone] Care Team Providers Care Shank Scourer Name Role Phone Sydney Hendricks DO Primary Care Provider [phone] Reason for Visit * Reason Onset Date Comments Test Results 01/30/2024 Encounter Details Date Type Department Care Team (Late st Contact Info) Description 01/30/2024 Refill Gynecology/Obstetrics [facility] [address] [place] [id number] Jana Betts CRNP [address] [place] [address] Allergies No known active allergiesdocumented as of [...] money to get more. Never true 10/03/2023 [place] Depression Scale Answer Date Recorded [place] Depression Scale Total 5 11/29/2023 The thought [...] Visit Gynecology/Obstetrics Justyn Brown [address] [place] [address] Jana Betts CRNP [address] [place] [address] Health Maintenance Due Date Last Done Comments [...] filedocumented as of this encounter Care Teams Shank Scourer Relationship Specialty Start Date End Date Sydney Hendricks DO [address] [place] [address] PCP - General Family Medicine 04/26/17 documented as of this encounter
--- OUTSIDE RECORDS SUMMARY | 2024-02-21 07:48 | External Medical Summary ---
Author Name Unknown Address Unknown Organization K01:[facility] [place] [place] - [address] [facility] [address] Laboratory Report Ordering Provider Test Date Status ESTEBAN MORLEY 01/27/2024 10:16:40 Final Observation Date Value Abnormality Reference (Units ) Status Color of Urine by Auto 01/27/2024 10:16:40 Yellow Colorless, Light Yellow, Yellow, Dark Yellow Final Clarity, Urine 01/27/2024 10:16:40 Slightly Cloudy Abnormal Clear Final Glucose [Mass/volume] in Urine by Automated test strip 01/27/2024 10:16:40 50 Abnormal Negative (mg/dL) Final Bilirubin.total [Presence] in Urine by Automated test strip 01/27/2024 10:16:40 Negative Negative Final Ketones [Mass/volume] in Urine by Automated test strip 01/27/2024 10:16:40 Negative Negative (mg/dL) Final Specific gravity, Urine 01/27/2024 10:16:40 1.022 1.003-1.030 Final Hemoglobin [Presence] in Urine by Automated test strip 01/27/2024 10:16:40 Moderate Abnormal Negative Final pH, Urine 01/27/2024 10:16:40 6.0 5.0-7.5 (Units) Final Protein [Mass/volume] in Urine by Automated test strip 01/27/2024 10:16:40 30 Abnormal Negative (mg/dL) Final Urobilinogen [Mass/volume] in Urine by Automated test strip 01/27/2024 10:16:40 Normal Normal (mg/dL) Final Nitrite [Presence] in Urine by Automated test strip 01/27/2024 10:16:40 Positive Abnormal Negative Final Leukocyte esterase [Presence] in Urine by Automated test strip 01/27/2024 10:16:40 Large Abnormal Negative Final RBC, Urine 01/27/2024 10:16:40 3-5 Abnormal 0-2 (/HPF) Final WBC, Urine 01/27/2024 10:16:40 50+ Abnormal 0-2 (/HPF) Final Bacteria [#/area] in Urine sediment by Microscopy high power field 01/27/2024 10:16:40 >200 Abnormal 0-25 (/HPF) Final Epithelial cells.squamous [#/area] in Urine sediment by Microscopy high power field 01/27/2024 10:16:40 Many Abnormal None (/HPF) Final Calcium oxalate crystals [#/area] in Urine sediment by Microscopy high power field 01/27/2024 10:16:40 10-19 Abnormal None (/HPF) Final Leukocyte clumps [#/area] in Urine sediment by Microscopy high power field 01/27/2024 10:16:40 Present Abnormal None (/HPF) Final CULTURE, URINE - GINOER 01/27/2024 10:16:40 Final Quantitative urine culture t o be performed Performing Location [facility] [place] [place] - [address] [facility] [address]
[2024-02-21] MEDS ORDERED: CALCIUM CARBONATE 500 MG CHEWABLE TAB PO PRN (08:24)
--- NOTE | 2024-02-21 09:01 | History & Physical Report ---
Date of Service February 21, 2024 Assessment & Plan (1) Post-term , 40-42 weeks of gestation: Plan: 28-year-old at 40 weeks and 2 days of gestation presenting today for induction of labor for postdates, Vital signs stable afebrile, GBS negative, heart rate reassuring, Cervix favorable, Plan to admit, monitor, labs, IV oxytocin per protocol, Epidural when patient desires, All questions were answered. Admission and Anticipated Discharge Date Admission Date: February 21, 2024 History of Present Illness Primary Care Provider: NO PCP Patient is a 28-year-old G1, P0 at 40 weeks and 2 days of gestation presenting today for induction of labor for postdates. She has no complaints. She denies contractions, leakage of fluid, vaginal bleeding. She reports good movements. She is known to me from last admission when she had UTI and contractions at 36 weeks and 5 days. Her cervix was 4 cm dilated and she did not progress and was discharged home on antibiotics. She has not had any contractions or symptoms since then. Her has been otherwise uncomplicated. she denies medical problems except anxiety for which she has been on Prozac daily. GBS negative. Allergies Allergy/AdvReac Type Severity Reaction Status Date / Time No Known Allergies Allergy Unverified 02/21/24 07:49 Home Medications Medication Instructions Recorded Confirmed Type Acetaminophen (Tylenol) 1,000 mg PO Q4 PRN Pain or Fever 02/01/17 02/21/24 History #0 tabs 1 tab PO DAILY 01/28/24 02/21/24 History cephalexin 500 mg capsule 500 mg PO QID #28 caps 01/28/24 02/21/24 Rx fluoxetine 10 mg capsule 20 mg PO DAILY 01/28/24 02/21/24 History iron 1 tab PO DAILY 01/28/24 02/21/24 History Tums 2 tabs PO HS PRN Heartburn 02/21/24 02/21/24 History Patient History Medical History Anxiety No known health problems Surgical History No history of previous surgery Social History Smoking Status: Former smoker Tobacco Type: E-cigarettes / Vaping Do You Dip or Chew Tobacco: No; Hx Alcohol Use: No Hx Substance Use: No Preferred Language: Burkinan Communication Ability: Effective Freight And Passenger Agent Required: No Beliefs That Will Affect Care: None marital status: Current Living Situation: Spouse Feels Safe at Home: Yes Safety Concerns: Feels Safe At This Time Assistive Devices: None TALENT ACQUISITION SPECIALIST History No history of STDs, no history of chlamydia, gonorrhea, herpes Review of Systems as per Subjective / HPI Physical Exam Constitutional: WD/WN, vitals as above well developed, well nourished and comfortable Gastrointestinal (Abdomen): normal bowel sounds, soft, nontender, no hepatosplenomegaly ( gravid, Davis 7 to 8 pounds) Genitourinary: normal external appearance OB Exam Abdomen: + vertex ( confirmed by bedside ultrasound) Manual OB Exam: + cervical dilation 4 cm, + cervical effacement 70% and + station -2 OB Exam Monitor Tracing: + external uterine monitor used and + category I Results & Data Vital Signs (Past 12 Hours) Vital Signs Temp Pulse Resp BP 02/21/24 07:55 37 C 94 H 18 128/83 02/21/24 07:44 94 H 128/83
[2024-02-21] MEDS: LACTATED RINGER'S 1,000 ML IV PRN (09:03)
[2024-02-21 09:27] LABS: Hematocrit (blood only) 32.6 % (37.0-47.0); Hemoglobin 10.7 g/dl (12.0-16.0); Mean Corpuscular Hemoglobin 27.2 pg (25.0-34.0); Mean Corpuscular Hgb Conc 32.8 g/dL (32.0-36.0); Mean Corpuscular Volume 82.7 fL (80.0-100.0); Mean Platelet Volume 10.7 fL (9.4-12.4); Platelet Count 227 K/uL (130-400); RDW Coefficient of Variation 12.9 % (11.5-14.5); RDW Standard Deviation 38.8 fL (36.4-46.3); Red Blood Count 3.94 M/uL (4.20-5.40); White Blood Count 11.22 K/ul (4.8-10.8)
[2024-02-21] MEDS: OXYTOCIN 30 UNITS/NSS 30 UNITS/500 ML BAG IV PRN (09:33)
--- NOTE | 2024-02-21 13:59 | Obstetrical Progress Note ---
Date of Service February 21, 2024 Assessment & Plan Admission and Anticipated Discharge Date Admission Date: February 21, 2024 Subjective Patient is reevaluated Feels well, no complaints Pitocin has been at 12 miu/min, ctxs q 2-3 min, patient does not feel any pain or discomfort, agrees with AROM FHR categ I VE; 4-5 cm/ 70%/ -1, bulging AROM'ed, clear fluid Continue to monitor closely Epidural when she desires Results & Data Vital Signs (Past 12 Hours) Vital Signs Temp Pulse Resp BP 02/21/24 13:42 36.9 C 02/21/24 13:37 74 02/21/24 13:37 119/67 02/21/24 12:40 18 02/21/24 12:40 37.0 C 18 02/21/24 12:38 78 02/21/24 12:38 123/71 02/21/24 11:47 78 02/21/24 11:47 120/71 02/21/24 10:42 73 02/21/24 10:42 124/62 02/21/24 09:39 78 02/21/24 09:39 119/67 02/21/24 07:55 37 C 94 H 18 128/83 02/21/24 07:44 94 H 128/83
[2024-02-21] MEDS ORDERED: BUPIVACAINE 0.25% PF 30 ML VIAL EPI PRN (15:25)
[2024-02-21] MEDS ORDERED: SODIUM CHLORIDE 0.9% PF INJ 10 ML VIAL EPI PRN (15:25)
[2024-02-21] MEDS ORDERED: diphenhydrAMINE 50 MG/ML VIAL IV PRN (15:25)
[2024-02-21] MEDS ORDERED: fentaNYL citrate PF 100 MCG/2 ML VIAL EPI PRN (15:25)
[2024-02-21] MEDS ORDERED: NALOXONE HCL 0.4 MG/1 ML VIAL/CARP IV PRN (15:25)
[2024-02-21] MEDS ORDERED: ONDANSETRON INJ 2 MG/ML 2 ML VIAL IV PRN (15:25)
[2024-02-21] MEDS ORDERED: LIDOCAINE 2% MPF LOCAL 5 ML VIAL EPI PRN (15:25)
[2024-02-21] MEDS ORDERED: ePHEDrine sulfate 50 MG/ML AMP IV PRN (15:25)
[2024-02-21] MEDS ORDERED: NALOXONE HCL 1 MG in SODIUM CHLORIDE 0.9% 1,000 ML IV PRN (15:25)
[2024-02-21] MEDS ORDERED: NALBUPHINE HCL 5 MG in SYRINGE 0 ML IV PRN (15:25)
[2024-02-21] MEDS ORDERED: ROPIVACAINE 0.5% PF 5 MG/ML 20 ML VIAL EPI PRN (15:25)
--- NOTE | 2024-02-21 15:25 | Anesthesiology Consultation ---
Date of Service February 21, 2024 Assessment & Plan ASA ASA2 Proposed Anesthesia Anesthesia Type: Labor Epidural Risk / Benefits Reviewed With: PT / POA / Parent / Guardian, Accepts Plan and Informed Consent Obtained History Height/Weight Height: 5 ft 3 in Weight: 82.554 kg Allergies Allergy/AdvReac Type Severity Reaction Status Date / Time No Known Allergies Allergy Unverified 02/21/24 07:49 Medications Home Medications Medication Instructions Recorded Confirmed Last Taken Acetaminophen (Tylenol) 1,000 mg PO Q4 PRN Pain or Fever 02/01/17 02/21/24 01/27/24 13:00 #0 tabs 1 tab PO DAILY 01/28/24 02/21/24 02/21/24 06:30 cephalexin 500 mg capsule 500 mg PO QID #28 caps 01/28/24 02/21/24 Unknown fluoxetine 10 mg capsule 20 mg PO DAILY 01/28/24 02/21/24 02/21/24 06:30 iron 1 tab PO DAILY 01/28/24 02/21/24 01/26/24 12:00 Tums 2 tabs PO HS PRN Heartburn 02/21/24 02/21/24 02/19/24 19:00 Active Medications Generic Name Dose Route Start Last Admin Trade Name Freq PRN Reason Stop Dose Admin Lactated Ringer's 1,000 mls @ 150 mls/hr 02/21/24 08:24 02/21/24 15:05 Lr IV 02/23/24 08:23 999 mls/hr .[id number] PRN Administration L&D Protocol Protocol Oxytocin 30 units in 500 mls @ 12 mls/hr 02/21/24 08:29 02/21/24 13:30 Pitocin 30 Units/Nss IV 02/23/24 08:28 0.72 units/hr .Q24H PRN 12 mls/hr Labor Induction/Augmentation Titration Protocol 0.72 UNITS/HR Past Medical History Medical History Anxiety No known health problems Exercise / Class Metabolic Activity II 4-5 Yardwork/Stairs/Walk up hill Past Surgical History Surgical History No history of previous surgery Past Anesthesia History No Hx of Anesthesia Complications and No Family Hx of Anesthesia Complications History of PONV No Hx of PONV and No Hx of Motion Sickness Social History Smoking Status: Former smoker Do You Dip or Chew Tobacco: No Hx Alcohol Use: No Hx Substance Use: No substance use type: does not use Review of Systems denies fever/cough/ colds/ chest pain/ SOB/ EARLENE denies EARLENE Physical Exam Vital Signs Last Vital Signs Temp 36.9 C 02/21/24 13:42 Pulse 73 02/21/24 14:40 Resp 18 02/21/24 12:40 BP 125/75 02/21/24 14:40 ENMT Mouth: no TMJ abnormality and no dentition abnormality Thyromental Distance: > or= 3.5 Finger Breadths Mallampati Class: II Neck neck extension not limited Respiratory normal respiratory effort; no respiratory distress Auscultation: lungs clear to auscultation bilaterally Cardiovascular Rate/Rhythm: regular rate and regular rhythm Neurologic moves all extremities Psychiatric Orientation: alert and oriented x 3 Testing Laboratory Results 02/21/24 08:48
[2024-02-21] MEDS: LIDOCAINE 2%/EPINEPHRINE 1:200,000 20 ML PF ONE (15:57)
[2024-02-21] MEDS: fentaNYL citrate PF 100 MCG/2 ML VIAL ONE (15:57)
[2024-02-21] MEDS: BUPIVACAINE 0.25% PF 30 ML VIAL ONE (15:57)
[2024-02-21] MEDS: fentANYL 2 MCG/ML BUPIVacaine 0.125%-NSS 100ML BAG ONE (16:00)
[2024-02-21] MEDS: LIDOCAINE 2%/EPINEPHRINE 1:200,000 20 ML PF EPI STA (16:31)
[2024-02-21] MEDS: BUPIVACAINE 0.25% PF 30 ML VIAL EPI STA (16:31)
[2024-02-21] MEDS: fentaNYL citrate PF 100 MCG/2 ML VIAL EPI STA (16:31)
[2024-02-21] MEDS: SODIUM CHLORIDE 0.9% PF INJ 10 ML VIAL ONE (16:31)
[2024-02-21] MEDS: SODIUM CHLORIDE 0.9% PF INJ 10 ML VIAL EPI STA (16:32)
--- NOTE | 2024-02-21 17:58 | Obstetrical Progress Note ---
Date of Service February 21, 2024 Assessment & Plan Admission and Anticipated Discharge Date Admission Date: February 21, 2024 Subjective Patient is comfortable now Recevied epidural for pain VE; 6/ 90%/ 0, OP FHR categ I Continue to monitor closely Left lateral position to help for internal rotation. Results & Data Vital Signs (Past 12 Hours) Vital Signs Temp Pulse Resp BP Pulse Ox 02/21/24 17:54 99 02/21/24 17:54 90 02/21/24 17:53 89 02/21/24 17:53 146/81 H 02/21/24 17:49 98 02/21/24 17:49 87 02/21/24 17:44 97 02/21/24 17:44 87 02/21/24 17:39 97 02/21/24 17:39 89 02/21/24 17:39 92 H 02/21/24 17:39 126/87 02/21/24 17:34 97 02/21/24 17:34 83 02/21/24 17:29 97 02/21/24 17:29 91 H 02/21/24 17:24 96 02/21/24 17:24 106 H 02/21/24 17:24 88 02/21/24 17:24 134/83 02/21/24 17:19 95 02/21/24 17:19 87 02/21/24 17:14 98 02/21/24 17:14 98 H 02/21/24 17:09 97 02/21/24 17:09 84 02/21/24 17:08 88 02/21/24 17:08 138/84 02/21/24 17:04 98 02/21/24 17:04 86 02/21/24 16:59 97 02/21/24 16:59 90 02/21/24 16:54 96 02/21/24 16:54 84 02/21/24 16:53 82 02/21/24 16:53 143/86 H 02/21/24 16:49 98 02/21/24 16:49 102 H 02/21/24 16:44 97 02/21/24 16:44 85 02/21/24 16:39 97 02/21/24 16:39 84 02/21/24 16:38 82 02/21/24 16:38 134/80 02/21/24 16:34 97 02/21/24 16:34 83 02/21/24 16:30 16 02/21/24 16:30 37.0 C 16 02/21/24 16:29 97 02/21/24 16:29 85 02/21/24 16:24 98 02/21/24 16:24 92 H 02/21/24 16:24 128/78 02/21/24 16:19 98 02/21/24 16:19 95 H 02/21/24 16:14 97 02/21/24 16:14 86 02/21/24 16:09 98 02/21/24 16:09 110 H 02/21/24 16:04 99 02/21/24 16:04 95 H 02/21/24 16:04 92 H 02/21/24 16:04 146/78 H 02/21/24 15:59 98 02/21/24 15:59 93 H 02/21/24 15:58 94 H 02/21/24 15:58 133/82 02/21/24 15:54 100 02/21/24 15:54 103 H 02/21/24 15:52 96 H 02/21/24 15:52 156/101 H 02/21/24 15:49 100 02/21/24 15:49 96 H 02/21/24 15:44 100 02/21/24 15:44 101 H 02/21/24 15:39 94 02/21/24 15:39 98 H 02/21/24 15:38 93 02/21/24 15:38 95 H 02/21/24 15:35 20 02/21/24 15:35 37.0 C 20 02/21/24 15:34 97 02/21/24 15:34 90 02/21/24 15:32 92 02/21/24 15:32 106 H 02/21/24 15:29 97 02/21/24 15:29 90 02/21/24 14:40 73 02/21/24 14:40 125/75 02/21/24 13:42 36.9 C 02/21/24 13:37 74 02/21/24 13:37 119/67 02/21/24 12:40 18 02/21/24 12:40 37.0 C 18 02/21/24 12:38 78 02/21/24 12:38 123/71 07/30/24 11:47 78 02/21/24 11:47 120/71 02/21/24 10:42 73 02/21/24 10:42 124/62 02/21/24 09:39 78 02/21/24 09:39 119/67 02/21/24 07:55 37 C 94 H 18 128/83 02/21/24 07:44 94 H 128/83
[2024-02-21] MEDS ORDERED: NURSING L&D Epidural Breakthrough Pain Update ONE (20:56)
--- NOTE | 2024-02-21 21:02 | Obstetrical Progress Note ---
Date of Service February 21, 2024 Assessment & Plan Admission and Anticipated Discharge Date Admission Date: February 21, 2024 Subjective Patient felt pressure and found to be fully dilated She pushed for few times and FHR had deceleration Oxytocin was stopped, IVF bolus and nasal O2 were started she was placed on left lateral and FHR recovered to normal baseline and good variability, had been Categ I since then She pushed with good efforts for about half an hour and head had been at +1 to +2 Will try to labor down Continue to monitor closely Results & Data Vital Signs (Past 12 Hours) Vital Signs Temp Pulse Resp BP Pulse Ox 02/21/24 20:54 97 02/21/24 20:54 120 H 02/21/24 20:54 126 H 02/21/24 20:54 130/75 02/21/24 20:49 100 02/21/24 20:49 124 H 02/21/24 20:44 98 02/21/24 20:44 128 H 02/21/24 20:39 99 02/21/24 20:39 125 H 02/21/24 20:39 142/82 H 02/21/24 20:34 98 02/21/24 20:34 144 H 02/21/24 20:29 97 02/21/24 20:29 133 H 02/21/24 20:24 99 02/21/24 20:24 136 H 02/21/24 20:23 160 H 02/21/24 20:23 154/69 H 02/21/24 20:22 80 L 02/21/24 20:22 118 H 02/21/24 20:19 99 02/21/24 20:19 122 H 02/21/24 20:17 86 L 02/21/24 20:17 117 H 02/21/24 20:14 100 02/21/24 20:14 127 H 02/21/24 20:09 73 L 02/21/24 20:09 98 H 02/21/24 20:08 115 H 02/21/24 20:08 139/64 02/21/24 20:04 74 L 02/21/24 20:04 114 H 02/21/24 20:03 91 02/21/24 20:03 101 H 02/21/24 19:59 98 02/21/24 19:59 110 H 02/21/24 19:54 98 02/21/24 19:54 98 H 02/21/24 19:49 98 02/21/24 19:49 101 H 02/21/24 19:44 98 02/21/24 19:44 88 02/21/24 19:39 99 02/21/24 19:39 99 H 02/21/24 19:38 89 02/21/24 19:38 130/83 02/21/24 19:34 98 02/21/24 19:34 87 02/21/24 19:29 99 02/21/24 19:29 89 02/21/24 19:24 97 02/21/24 19:24 83 02/21/24 19:23 78 02/21/24 19:23 127/76 02/21/24 19:19 98 02/21/24 19:19 80 02/21/24 19:14 100 02/21/24 19:14 90 02/21/24 19:09 99 02/21/24 19:09 82 02/21/24 19:08 78 02/21/24 19:08 128/80 02/21/24 19:04 98 02/21/24 19:04 81 02/21/24 18:59 98 02/21/24 18:59 82 02/21/24 18:54 98 02/21/24 18:54 83 02/21/24 18:54 119/75 02/21/24 18:50 80 02/21/24 18:50 122/79 02/21/24 18:49 98 02/21/24 18:49 81 02/21/24 18:44 98 02/21/24 18:44 82 02/21/24 18:39 98 02/21/24 18:39 82 02/21/24 18:34 98 02/21/24 18:34 80 02/21/24 18:29 99 02/21/24 18:29 85 02/21/24 18:24 97 02/21/24 18:24 81 02/21/24 18:19 100 02/21/24 18:19 82 02/21/24 18:15 18 02/21/24 18:15 37.0 C 18 02/21/24 18:14 98 02/21/24 18:14 79 02/21/24 18:09 97 02/21/24 18:09 82 02/21/24 18:09 89 02/21/24 18:09 112/83 02/21/24 18:04 98 02/21/24 18:04 90 02/21/24 17:59 98 02/21/24 17:59 79 02/21/24 17:54 99 02/21/24 17:54 90 02/21/24 17:53 89 02/21/24 17:53 146/81 H 02/21/24 17:49 98 02/21/24 17:49 87 02/21/24 17:44 97 02/21/24 17:44 87 02/21/24 17:39 97 02/21/24 17:39 89 02/21/24 17:39 92 H 02/21/24 17:39 126/87 02/21/24 17:34 97 02/21/24 17:34 83 02/21/24 17:29 97 02/21/24 17:29 91 H 02/21/24 17:24 96 02/21/24 17:24 106 H 02/21/24 17:24 88 02/21/24 17:24 134/83 02/21/24 17:19 95 02/21/24 17:19 87 02/21/24 17:14 98 02/21/24 17:14 98 H 02/21/24 17:09 97 02/21/24 17:09 84 02/21/24 17:08 88 02/21/24 17:08 138/84 02/21/24 17:04 98 02/21/24 17:04 86 02/21/24 16:59 97 02/21/24 16:59 90 02/21/24 16:54 96 02/21/24 16:54 84 02/21/24 16:53 82 02/21/24 16:53 143/86 H 02/21/24 16:49 98 02/21/24 16:49 102 H 02/21/24 16:44 97 02/21/24 16:44 85 02/21/24 16:39 97 02/21/24 16:39 84 02/21/24 16:38 82 02/21/24 16:38 134/80 02/21/24 16:34 97 02/21/24 16:34 83 02/21/24 16:30 16 02/21/24 16:30 37.0 C 16 02/21/24 16:29 97 02/21/24 16:29 85 02/21/24 16:24 98 02/21/24 16:24 92 H 02/21/24 16:24 128/78 02/21/24 16:19 98 02/21/24 16:19 95 H 02/21/24 16:14 97 02/21/24 16:14 86 02/21/24 16:09 98 02/21/24 16:09 110 H 02/21/24 16:04 99 02/21/24 16:04 95 H 02/21/24 16:04 92 H 02/21/24 16:04 146/78 H 02/21/24 15:59 98 02/21/24 15:59 93 H 02/21/24 15:58 94 H 02/21/24 15:58 133/82 02/21/24 15:54 100 02/21/24 15:54 103 H 02/21/24 15:52 96 H 02/21/24 15:52 156/101 H 02/21/24 15:49 100 02/21/24 15:49 96 H 02/21/24 15:44 100 02/21/24 15:44 101 H 02/21/24 15:39 94 02/21/24 15:39 98 H 02/21/24 15:38 93 02/21/24 15:38 95 H 02/21/24 15:35 20 02/21/24 15:35 37.0 C 20 02/21/24 15:34 97 02/21/24 15:34 90 02/21/24 15:32 92 02/21/24 15:32 106 H 02/21/24 15:29 97 02/21/24 15:29 90 02/21/24 14:40 73 02/21/24 14:40 125/75 02/21/24 13:42 36.9 C 02/21/24 13:37 74 02/21/24 13:37 119/67 02/21/24 12:40 18 02/21/24 12:40 37.0 C 18 02/21/24 12:38 78 02/21/24 12:38 123/71 02/21/24 11:47 78 02/21/24 11:47 120/71 02/21/24 10:42 73 02/21/24 10:42 124/62 02/21/24 09:39 78 02/21/24 09:39 119/67
[2024-02-21] MEDS: ePHEDrine sulfate 50 MG/ML AMP ONE (21:14)
--- NOTE | 2024-02-21 21:32 | Obstetrical Progress Note ---
Date of Service February 21, 2024 Assessment & Plan Admission and Anticipated Discharge Date Admission Date: February 21, 2024 Subjective Patient has been resting, laboring down, no complaints Pain button helped for pressure she had earlier FHR categ I Continue to monitor Results & Data Vital Signs (Past 12 Hours) Vital Signs Temp Pulse Resp BP Pulse Ox 02/21/24 21:29 97 02/21/24 21:29 107 H 02/21/24 21:24 95 02/21/24 21:24 112 H 02/21/24 21:23 106 H 02/21/24 21:23 117/66 02/21/24 21:19 96 02/21/24 21:19 105 H 02/21/24 21:14 95 02/21/24 21:14 108 H 02/21/24 21:09 96 02/21/24 21:09 106 H 02/21/24 21:08 116 H 02/21/24 21:08 101/56 L 02/21/24 21:04 97 02/21/24 21:04 112 H 02/21/24 20:59 97 02/21/24 20:59 112 H 02/21/24 20:54 97 02/21/24 20:54 120 H 02/21/24 20:54 126 H 02/21/24 20:54 130/75 02/21/24 20:49 100 02/21/24 20:49 124 H 02/21/24 20:44 98 02/21/24 20:44 128 H 02/21/24 20:39 99 02/21/24 20:39 125 H 02/21/24 20:39 142/82 H 02/21/24 20:34 98 02/21/24 20:34 144 H 02/21/24 20:29 97 02/21/24 20:29 133 H 02/21/24 20:24 99 02/21/24 20:24 136 H 02/21/24 20:23 160 H 02/21/24 20:23 154/69 H 02/21/24 20:22 80 L 02/21/24 20:22 118 H 02/21/24 20:19 99 02/21/24 20:19 122 H 02/21/24 20:17 86 L 02/21/24 20:17 117 H 02/21/24 20:14 100 02/21/24 20:14 127 H 02/21/24 20:09 73 L 02/21/24 20:09 98 H 02/21/24 20:08 115 H 02/21/24 20:08 139/64 02/21/24 20:04 74 L 02/21/24 20:04 114 H 02/21/24 20:03 91 02/21/24 20:03 101 H 02/21/24 19:59 98 02/21/24 19:59 110 H 02/21/24 19:55 18 02/21/24 19:55 36.9 C 18 02/21/24 19:54 98 02/21/24 19:54 98 H 02/21/24 19:49 98 02/21/24 19:49 101 H 02/21/24 19:44 98 02/21/24 19:44 88 02/21/24 19:39 99 02/21/24 19:39 99 H 02/21/24 19:38 89 02/21/24 19:38 130/83 02/21/24 19:34 98 02/21/24 19:34 87 02/21/24 19:29 99 02/21/24 19:29 89 02/21/24 19:24 97 02/21/24 19:24 83 02/21/24 19:23 78 02/21/24 19:23 127/76 02/21/24 19:19 98 02/21/24 19:19 80 02/21/24 19:14 100 02/21/24 19:14 90 02/21/24 19:09 99 02/21/24 19:09 82 02/21/24 19:08 78 02/21/24 19:08 128/80 02/21/24 19:04 98 02/21/24 19:04 81 02/21/24 18:59 98 02/21/24 18:59 82 02/21/24 18:54 98 02/21/24 18:54 83 02/21/24 18:54 119/75 02/21/24 18:50 80 02/21/24 18:50 122/79 02/21/24 18:49 98 02/21/24 18:49 81 02/21/24 18:44 98 02/21/24 18:44 82 02/21/24 18:39 98 02/21/24 18:39 82 02/21/24 18:34 98 02/21/24 18:34 80 02/21/24 18:29 99 02/21/24 18:29 85 02/21/24 18:24 97 02/21/24 18:24 81 02/21/24 18:19 100 02/21/24 18:19 82 02/21/24 18:15 18 02/21/24 18:15 37.0 C 18 02/21/24 18:14 98 02/21/24 18:14 79 02/21/24 18:09 97 02/21/24 18:09 82 02/21/24 18:09 89 02/21/24 18:09 112/83 02/21/24 18:04 98 02/21/24 18:04 90 02/21/24 17:59 98 02/21/24 17:59 79 02/21/24 17:54 99 02/21/24 17:54 90 02/21/24 17:53 89 02/21/24 17:53 146/81 H 02/21/24 17:49 98 02/21/24 17:49 87 02/21/24 17:44 97 02/21/24 17:44 87 02/21/24 17:39 97 02/21/24 17:39 89 02/21/24 17:39 92 H 02/21/24 17:39 126/87 02/21/24 17:34 97 02/21/24 17:34 83 02/21/24 17:29 97 02/21/24 17:29 91 H 02/21/24 17:24 96 02/21/24 17:24 106 H 02/21/24 17:24 88 02/21/24 17:24 134/83 02/21/24 17:19 95 02/21/24 17:19 87 02/21/24 17:14 98 02/21/24 17:14 98 H 02/21/24 17:09 97 02/21/24 17:09 84 02/21/24 17:08 88 02/21/24 17:08 138/84 02/21/24 17:04 98 02/21/24 17:04 86 02/21/24 16:59 97 02/21/24 16:59 90 02/21/24 16:54 96 02/21/24 16:54 84 02/21/24 16:53 82 02/21/24 16:53 143/86 H 02/21/24 16:49 98 02/21/24 16:49 102 H 02/21/24 16:44 97 02/21/24 16:44 85 02/21/24 16:39 97 02/21/24 16:39 84 02/21/24 16:38 82 02/21/24 16:38 134/80 02/21/24 16:34 97 02/21/24 16:34 83 02/21/24 16:30 16 02/21/24 16:30 37.0 C 16 02/21/24 16:29 97 02/21/24 16:29 85 02/21/24 16:24 98 02/21/24 16:24 92 H 02/21/24 16:24 128/78 02/21/24 16:19 98 02/21/24 16:19 95 H 02/21/24 16:14 97 02/21/24 16:14 86 02/21/24 16:09 98 02/21/24 16:09 110 H 02/21/24 16:04 99 02/21/24 16:04 95 H 02/21/24 16:04 92 H 02/21/24 16:04 146/78 H 02/21/24 15:59 98 02/21/24 15:59 93 H 02/21/24 15:58 94 H 02/21/24 15:58 133/82 02/21/24 15:54 100 02/21/24 15:54 103 H 02/21/24 15:52 96 H 02/21/24 15:52 156/101 H 02/21/24 15:49 100 02/21/24 15:49 96 H 02/21/24 15:44 100 02/21/24 15:44 101 H 02/21/24 15:39 94 02/21/24 15:39 98 H 02/21/24 15:38 93 02/21/24 15:38 95 H 02/21/24 15:35 20 02/21/24 15:35 37.0 C 20 02/21/24 15:34 97 02/21/24 15:34 90 02/21/24 15:32 92 02/21/24 15:32 106 H 02/21/24 15:29 97 02/21/24 15:29 90 02/21/24 14:40 73 02/21/24 14:40 125/75 02/21/24 13:42 36.9 C 02/21/24 13:37 74 02/21/24 13:37 119/67 02/21/24 12:40 18 02/21/24 12:40 37.0 C 18 02/21/24 12:38 78 02/21/24 12:38 123/71 02/21/24 11:47 78 02/21/24 11:47 120/71 02/21/24 10:42 73 02/21/24 10:42 124/62 02/21/24 09:39 78 02/21/24 09:39 119/67
[2024-02-21] MEDS: fentANYL 2 MCG/ML BUPIVacaine 0.125%-NSS 100ML BAG EPI PRN (21:54)
[2024-02-21] MEDS ORDERED: ROPIVACAINE 0.5% 5 MG/ML 30 ML VIAL ONE (22:01)
[2024-02-21] MEDS ORDERED: LIDOCAINE 2% MPF LOCAL 5 ML VIAL ONE (22:01)
[2024-02-21] MEDS ORDERED: fentaNYL citrate PF 100 MCG/2 ML VIAL ONE (22:01)
--- NOTE | 2024-02-21 22:08 | Anesthesia Procedure Note ---
Date of Service February 21, 2024 Anesthesia Epidural Re-Dose Vital Signs Temp Pulse Resp BP Pulse Ox 36.9 C 103 H 18 125/80 97 02/21/24 19:55 02/21/24 22:05 02/21/24 19:55 02/21/24 22:05 02/21/24 22:04 Notes Pain Intensity: 5 Dilatation (cm): 10.0 Effacement (%): 100 Called by nursing to evaluate epidural as the patient is having increased pain. The epidural was re-dosed with the following medications (all medications via epidural route) after negative aspiration of the epidural catheter for CSF/HEME. 2ml 2% lidocaine with epi, 3mL ropivacaine 0.5% and 100 mcg fetanyl via epidural After Epidural Re-Dose Mental Status: alert / awake / arousable Pain: improving with treatment Airway Patency, RR, SpO2: stable & adequate BP & HR: stable & adequate
[2024-02-21] MEDS: MINERAL OIL 30 ML UDC ONE (23:21)
--- NOTE | 2024-02-22 00:19 | Obstetrical Progress Note ---
Date of Service February 22, 2024 Assessment & Plan Admission and Anticipated Discharge Date Admission Date: February 21, 2024 Subjective Patient labored down for over 1 hour and started to be painful Epidural was redosed and Tried to push after that but was not feeling anything Started to push actively at 23:25 with good efforts Contractions have spaced out and Oxytocin was restarted FHR had been categ I Caput is visible with pushing, bony part is still behind, +2 Continue to monitor closely Results & Data Vital Signs (Past 12 Hours) Vital Signs Temp Pulse Resp BP Pulse Ox 02/22/24 00:14 134 H 97 02/22/24 00:09 127 H 97 02/22/24 00:04 127 H 98 02/22/24 00:02 128 H 88 L 02/22/24 00:00 18 02/22/24 00:00 37.1 C 18 02/21/24 23:59 97 02/21/24 23:59 129 H 02/21/24 23:54 97 02/21/24 23:54 122 H 02/21/24 23:49 96 02/21/24 23:49 144 H 02/21/24 23:44 100 02/21/24 23:44 124 H 02/21/24 23:43 91 02/21/24 23:43 131 H 02/21/24 23:39 96 02/21/24 23:39 128 H 02/21/24 23:39 126 H 02/21/24 23:39 128/98 02/21/24 23:37 87 L 02/21/24 23:37 95 H 02/21/24 23:34 97 02/21/24 23:34 118 H 02/21/24 23:31 87 L 02/21/24 23:31 111 H 02/21/24 23:29 97 02/21/24 23:29 121 H 02/21/24 23:24 99 02/21/24 23:24 145 H 02/21/24 23:19 98 02/21/24 23:19 115 H 02/21/24 23:14 96 02/21/24 23:14 106 H 02/21/24 23:09 96 02/21/24 23:09 112 H 02/21/24 23:08 102 H 02/21/24 23:08 132/84 02/21/24 23:05 94 02/21/24 23:05 117 H 02/21/24 23:04 96 02/21/24 23:04 117 H 02/21/24 22:59 96 02/21/24 22:59 115 H 02/21/24 22:54 96 02/21/24 22:54 125 H 02/21/24 22:54 122 H 02/21/24 22:54 118/69 02/21/24 22:49 96 02/21/24 22:49 137 H 02/21/24 22:44 96 02/21/24 22:44 118 H 02/21/24 22:39 98 02/21/24 22:39 153 H 02/21/24 22:38 117 H 02/21/24 22:38 145/80 H 02/21/24 22:34 98 02/21/24 22:34 124 H 02/21/24 22:31 86 L 02/21/24 22:31 129 H 02/21/24 22:29 80 L 02/21/24 22:29 122 H 02/21/24 22:24 96 02/21/24 22:24 107 H 02/21/24 22:24 127/82 02/21/24 22:19 96 02/21/24 22:19 112 H 02/21/24 22:14 96 02/21/24 22:14 102 H 02/21/24 22:09 96 02/21/24 22:09 109 H 02/21/24 22:09 126/81 02/21/24 22:06 16 02/21/24 22:06 37.1 C 16 02/21/24 22:05 103 H 02/21/24 22:05 125/80 02/21/24 22:04 97 02/21/24 22:04 107 H 02/21/24 21:59 96 02/21/24 21:59 107 H 02/21/24 21:58 93 02/21/24 21:58 109 H 02/21/24 21:54 96 02/21/24 21:54 112 H 02/21/24 21:52 110 H 02/21/24 21:52 122/73 02/21/24 21:52 94 02/21/24 21:52 110 H 02/21/24 21:49 95 02/21/24 21:49 108 H 02/21/24 21:44 95 02/21/24 21:44 112 H 02/21/24 21:41 94 02/21/24 21:41 107 H 02/21/24 21:39 94 02/21/24 21:39 105 H 02/21/24 21:38 108 H 02/21/24 21:38 118/67 02/21/24 21:35 94 02/21/24 21:35 107 H 02/21/24 21:34 95 02/21/24 21:34 108 H 02/21/24 21:29 97 02/21/24 21:29 107 H 02/21/24 21:24 95 02/21/24 21:24 112 H 02/21/24 21:23 106 H 02/21/24 21:23 117/66 02/21/24 21:19 96 02/21/24 21:19 105 H 02/21/24 21:14 95 02/21/24 21:14 108 H 02/21/24 21:09 96 02/21/24 21:09 106 H 02/21/24 21:08 116 H 02/21/24 21:08 101/56 L 02/21/24 21:04 97 02/21/24 21:04 112 H 02/21/24 20:59 97 02/21/24 20:59 112 H 02/21/24 20:54 97 02/21/24 20:54 120 H 02/21/24 20:54 126 H 02/21/24 20:54 130/75 02/21/24 20:49 100 02/21/24 20:49 124 H 02/21/24 20:44 98 02/21/24 20:44 128 H 02/21/24 20:39 99 02/21/24 20:39 125 H 02/21/24 20:39 142/82 H 02/21/24 20:34 98 02/21/24 20:34 144 H 02/21/24 20:29 97 02/21/24 20:29 133 H 02/21/24 20:24 99 02/21/24 20:24 136 H 02/21/24 20:23 160 H 02/21/24 20:23 154/69 H 02/21/24 20:22 80 L 02/21/24 20:22 118 H 02/21/24 20:19 99 02/21/24 20:19 122 H 02/21/24 20:17 86 L 02/21/24 20:17 117 H 02/21/24 20:14 100 02/21/24 20:14 127 H 02/21/24 20:09 73 L 02/21/24 20:09 98 H 02/21/24 20:08 115 H 02/21/24 20:08 139/64 02/21/24 20:04 74 L 02/21/24 20:04 114 H 02/21/24 20:03 91 02/21/24 20:03 101 H 02/21/24 19:59 98 02/21/24 19:59 110 H 02/21/24 19:55 18 02/21/24 19:55 36.9 C 18 02/21/24 19:54 98 02/21/24 19:54 98 H 02/21/24 19:49 98 02/21/24 19:49 101 H 02/21/24 19:44 98 02/21/24 19:44 88 02/21/24 19:39 99 02/21/24 19:39 99 H 02/21/24 19:38 89 02/21/24 19:38 130/83 02/21/24 19:34 98 02/21/24 19:34 87 02/21/24 19:29 99 02/21/24 19:29 89 02/21/24 19:24 97 02/21/24 19:24 83 02/21/24 19:23 78 02/21/24 19:23 127/76 02/21/24 19:19 98 02/21/24 19:19 80 02/21/24 19:14 100 02/21/24 19:14 90 02/21/24 19:09 99 02/21/24 19:09 82 02/21/24 19:08 78 02/21/24 19:08 128/80 02/21/24 19:04 98 02/21/24 19:04 81 02/21/24 18:59 98 02/21/24 18:59 82 02/21/24 18:54 98 02/21/24 18:54 83 02/21/24 18:54 119/75 02/21/24 18:50 80 02/21/24 18:50 122/79 02/21/24 18:49 98 02/21/24 18:49 81 02/21/24 18:44 98 02/21/24 18:44 82 02/21/24 18:39 98 02/21/24 18:39 82 02/21/24 18:34 98 02/21/24 18:34 80 02/21/24 18:29 99 02/21/24 18:29 85 02/21/24 18:24 97 02/21/24 18:24 81 02/21/24 18:19 100 02/21/24 18:19 82 02/21/24 18:15 18 02/21/24 18:15 37.0 C 18 02/21/24 18:14 98 02/21/24 18:14 79 02/21/24 18:09 97 02/21/24 18:09 82 02/21/24 18:09 89 02/21/24 18:09 112/83 02/21/24 18:04 98 02/21/24 18:04 90 02/21/24 17:59 98 02/21/24 17:59 79 02/21/24 17:54 99 02/21/24 17:54 90 02/21/24 17:53 89 02/21/24 17:53 146/81 H 02/21/24 17:49 98 02/21/24 17:49 87 02/21/24 17:44 97 02/21/24 17:44 87 02/21/24 17:39 97 02/21/24 17:39 89 02/21/24 17:39 92 H 02/21/24 17:39 126/87 02/21/24 17:34 97 02/21/24 17:34 83 02/21/24 17:29 97 02/21/24 17:29 91 H 02/21/24 17:24 96 02/21/24 17:24 106 H 02/21/24 17:24 88 02/21/24 17:24 134/83 02/21/24 17:19 95 02/21/24 17:19 87 02/21/24 17:14 98 02/21/24 17:14 98 H 02/21/24 17:09 97 02/21/24 17:09 84 02/21/24 17:08 88 02/21/24 17:08 138/84 02/21/24 17:04 98 02/21/24 17:04 86 02/21/24 16:59 97 02/21/24 16:59 90 02/21/24 16:54 96 02/21/24 16:54 84 02/21/24 16:53 82 02/21/24 16:53 143/86 H 02/21/24 16:49 98 02/21/24 16:49 102 H 02/21/24 16:44 97 02/21/24 16:44 85 02/21/24 16:39 97 02/21/24 16:39 84 02/21/24 16:38 82 02/21/24 16:38 134/80 02/21/24 16:34 97 02/21/24 16:34 83 02/21/24 16:30 16 02/21/24 16:30 37.0 C 16 02/21/24 16:29 97 02/21/24 16:29 85 02/21/24 16:24 98 02/21/24 16:24 92 H 02/21/24 16:24 128/78 02/21/24 16:19 98 02/21/24 16:19 95 H 02/21/24 16:14 97 02/21/24 16:14 86 02/21/24 16:09 98 02/21/24 16:09 110 H 02/21/24 16:04 99 02/21/24 16:04 95 H 02/21/24 16:04 92 H 02/21/24 16:04 146/78 H 02/21/24 15:59 98 02/21/24 15:59 93 H 02/21/24 15:58 94 H 02/21/24 15:58 133/82 02/21/24 15:54 100 02/21/24 15:54 103 H 02/21/24 15:52 96 H 02/21/24 15:52 156/101 H 02/21/24 15:49 100 02/21/24 15:49 96 H 02/21/24 15:44 100 02/21/24 15:44 101 H 02/21/24 15:39 94 02/21/24 15:39 98 H 02/21/24 15:38 93 02/21/24 15:38 95 H 02/21/24 15:35 20 02/21/24 15:35 37.0 C 20 02/21/24 15:34 97 02/21/24 15:34 90 02/21/24 15:32 92 02/21/24 15:32 106 H 02/21/24 15:29 97 02/21/24 15:29 90 02/21/24 14:40 73 02/21/24 14:40 125/75 02/21/24 13:42 36.9 C 02/21/24 13:37 74 02/21/24 13:37 119/67 02/21/24 12:40 18 02/21/24 12:40 37.0 C 18 02/21/24 12:38 78 02/21/24 12:38 123/71
[2024-02-22] MEDS ORDERED: LACTATED RINGER'S 500 ML IV PRN (01:38)
[2024-02-22] MEDS ORDERED: MoRPHine SULFATE PF 1 MG/ML 10 ML AMP/VIAL EPI ONE (01:38)
[2024-02-22] MEDS ORDERED: HYDROmorphone INJ 0.5 MG/0.5 ML SYR IV PRN (01:38)
[2024-02-22] MEDS ORDERED: diphenhydrAMINE 50 MG/ML VIAL IV PRN (01:38)
[2024-02-22] MEDS ORDERED: KETOROLAC 30 MG/ML VIAL IV PRN (01:38)
[2024-02-22] MEDS ORDERED: NALOXONE HCL 1 MG in SODIUM CHLORIDE 0.9% 1,000 ML IV PRN (01:38)
[2024-02-22] MEDS ORDERED: NALOXONE HCL 0.4 MG/1 ML VIAL/CARP IV PRN (01:38)
[2024-02-22] MEDS ORDERED: MoRPHine SULFATE 2 MG/ML CARP IV PRN (01:38)
[2024-02-22] MEDS ORDERED: ePHEDrine sulfate 50 MG/ML AMP IV PRN (01:38)
[2024-02-22] MEDS ORDERED: NALBUPHINE HCL 5 MG in SYRINGE 0 ML IV PRN (01:38)
[2024-02-22] MEDS ORDERED: NALOXONE HCL 0.08 MG in SYRINGE 1.8 ML IV PRN (01:38)
[2024-02-22] MEDS ORDERED: ONDANSETRON INJ 2 MG/ML 2 ML VIAL IV PRN ×2 (01:38→03:45)
[2024-02-22] MEDS ORDERED: NO NARCOTICS OR SEDATIVES SCH (01:45)
[2024-02-22] MEDS ORDERED: SODIUM CHLORIDE 0.9% 1,000 ML IV SCH (01:45)
[2024-02-22] MEDS ORDERED: DC INTRASPINAL MORPHINE SCH (01:45)
[2024-02-22] MEDS ORDERED: MINERAL OIL 30 ML UDC ONE (01:47)
[2024-02-22] MEDS ORDERED: AZITHROMYCIN 500 MG in DEXTROSE 5% 250 ML IV ONE (02:15)
[2024-02-22] MEDS: miSOPROStoL 200 MCG TAB ONE (03:03)
[2024-02-22] MEDS: METHYLERGONOVINE MALEATE 0.2 MG/ML AMP ONE (03:06)
[2024-02-22] MEDS: CARBOPROST TROMETHAMINE 250 MCG/ML AMPUL ONE (03:14)
[2024-02-22] MEDS: LIDOCAINE 1% LOCAL 20 ML VIAL INFIL PRN (03:26)
[2024-02-22] MEDS: BUPIVACAINE 0.25% PF 30 ML VIAL ONE (03:26)
[2024-02-22] MEDS: LIDOCAINE 2% MPF LOCAL 5 ML VIAL ONE (03:27)
[2024-02-22] MEDS: OXYTOCIN 30 UNITS/NSS 30 UNITS/500 ML BAG IV PRN (03:28)
[2024-02-22] MEDS: ceFAZolin 2000MG 2,000 MG/15 ML SYR IV ONE ×2 (03:34→12:53)
[2024-02-22] MEDS ORDERED: HYDROCORTISONE ACETATE 25 MG SUPP PR PRN (03:41)
[2024-02-22] MEDS ORDERED: bisacodyL 10 MG SUPP PR PRN (03:41)
[2024-02-22] MEDS ORDERED: ACETAMINOPHEN 325 MG TAB PO PRN (03:41)
[2024-02-22] MEDS ORDERED: BENZOCAINE 20% SPRY 85 APPLN/85 GM CAN EXT PRN (03:41)
[2024-02-22] MEDS ORDERED: OXYTOCIN 30 UNITS/NSS 30 UNITS/500 ML BAG IV PRN (03:41)
[2024-02-22] MEDS ORDERED: oxyCODONE/ACETAMINOPHEN 5mg/325mg TAB PO PRN (03:41)
[2024-02-22] MEDS: ceFAZolin 2000MG 2,000 MG/15 ML SYR IV STA (03:47)
[2024-02-22] MEDS: ONDANSETRON INJ 2 MG/ML 2 ML VIAL ONE (03:48)
[2024-02-22] MEDS: miSOPROStoL 200 MCG TAB PR ONE (03:51)
[2024-02-22] MEDS: METHYLERGONOVINE MALEATE 0.2 MG/ML AMP IM ONE (03:51)
[2024-02-22] MEDS: CARBOPROST TROMETHAMINE 250 MCG/ML AMPUL IM ONE (03:51)
[2024-02-22] MEDS: fentaNYL citrate PF 100 MCG/2 ML VIAL ONE (03:53)
--- NOTE | 2024-02-22 03:55 | Delivery Summary ---
Vaginal Delivery Summary Date of Service February 22, 2024 Vaginal Delivery Summary Patient was found to be fully dilated and desired to push. She pushed for about 4.5 hours on and off with rest/ labor down in between and the head was over a tight perineum. Mother was exhausted and asked for help. A small left sided mediolateral episiotoymy was opened and the head was delivered and then shoulders with minimal traction at 02:50 am. The baby was handed off to the mother. The cord was clampedx2 and cut at 1 minute. He was vigorously moving and crying. The vagina and perineum were checked and found to have 2nd degree vaginal laceration at 9 o'clock position and the mediolateral episiotomy which was opened earlier. The placenta was found to be in the vagina and delivered spontaneously as intact and complete. The uterus was explored and found to be boggy with cloths. It was messaged, IV oxytocin was started at 999 ml/ hour, IM Methergine and Rectal Cytotec were given. It was firming up with some more cloths coming. Hemabate IM was given and uterus became firm. Rectal exam was done and noted good sphincter tone. The gloves were changed. Ext sphincter muscles and perineal body muscles closeby were held with Allis clamps and reapproximated with 2/0 Vicryl supporting the sphincter. Then rectal exam was repeated and good sphincter tone was noted. No sutures felt. The gloves were changed. The vaginal mucosa on both sides were repaired with 2/0 vicryl and skin on subcu ticular fashion. EBL was 1118 ml. The fundus was firm The baby was a viable male , Apgars 8/9, the weight is pending The mother and the baby tolerated the procedure well. No complications happened and I was present during whole procedure.
--- NOTE | 2024-02-22 03:55 | Communication Note ---
Date of Service: February 22, 2024 pt had a vaginal tear from delivery. asked to provide a bolus epidural dose to help with repair 3 ml of 2% lido and 3 mL of 0.5% ropivacaine given
--- NOTE | 2024-02-22 04:06 | Anesthesia Procedure Note ---
Date of Service February 22, 2024 Anesthesia Post Epidural Note Vital Signs Vital Signs: Temp Pulse Resp BP Pulse Ox 36.9 C 127 H 18 123/77 94 02/22/24 02:30 02/22/24 03:55 02/22/24 02:30 02/22/24 03:55 02/22/24 02:49 Pain Intensity Lower Back: Pain Intensity: 0 Notes Mental Status: alert / awake / arousable and participated in evaluation Nausea / Vomiting: adequately controlled Pain: adequately controlled Airway Patency, RR, SpO2: stable & adequate BP & HR: stable & adequate Hydration State: stable & adequate Neuraxial Anesthesia: was administered and sensory block resolved Anesthetic Complications: no major complications apparent and Pt Satisfied with anesthetic care Epidural: Removed without complications and With tip intact
[2024-02-22] MEDS: IBUPROFEN 600 MG TAB PO PRN (04:53)
[2024-02-22] MEDS: METHYLERGONOVINE MALEATE 0.2 MG TAB PO SCH (04:53)
[2024-02-22 07:31] LABS: Hematocrit (blood only) 27.6 % (37.0-47.0); Hemoglobin 9.1 g/dl (12.0-16.0); Mean Corpuscular Hemoglobin 27.7 pg (25.0-34.0); Mean Corpuscular Volume 83.9 fL (80.0-100.0); Mean Platelet Volume 10.4 fL (9.4-12.4); Platelet Count 188 K/uL (130-400); RDW Coefficient of Variation 13.2 % (11.5-14.5); RDW Standard Deviation 39.6 fL (36.4-46.3); Red Blood Count 3.29 M/uL (4.20-5.40); White Blood Count 23.36 K/ul (4.8-10.8)
[2024-02-22 07:32] LABS: Basophils # (auto) 0.05 K/uL (0.00-0.20); Basophils % (auto) 0.2 %; Immature Granulocytes # (auto) 0.15 K/uL (0.01-0.20); Immature Granulocytes % (auto) 0.6 %; Lymphocytes # (auto) 1.03 K/uL (1.20-3.40); Lymphocytes % (auto) 4.4 %; Monocytes # (auto) 0.87 K/uL (0.11-0.59); Monocytes % (auto) 3.7 %; Neutrophils # (auto) 21.26 K/uL (1.40-6.50); Neutrophils % (auto) 91.1 %
[2024-02-22] MEDS: FERROUS SULFATE 325 MG TAB PO SCH (09:09)
[2024-02-22] MEDS: PRENATAL VITAMIN 1 TAB PO SCH (09:09)
[2024-02-22] MEDS: DOCUSATE SODIUM 100 MG CAP PO SCH (09:09)
[2024-02-22] MEDS: IRON SUCROSE 200 MG in 0.9 % SODIUM CHLORIDE 100 ML IV ONE (09:25)
[2024-02-22] MEDS: FLUoxetine HCL 10 MG CAP PO SCH (09:35)
[2024-02-22] MEDS: ACETAMINOPHEN 325 MG TAB PO PRN (12:09)
[2024-02-22] MEDS: AMOXICILLIN/CLAVULANATE 875 MG TAB PO SCH (18:09)
[2024-02-23 06:09] LABS: Hematocrit (blood only) 22.9 % (37.0-47.0); Hemoglobin 7.5 g/dl (12.0-16.0); Mean Corpuscular Hemoglobin 27.7 pg (25.0-34.0); Mean Corpuscular Hgb Conc 32.8 g/dL (32.0-36.0); Mean Corpuscular Volume 84.5 fL (80.0-100.0); Mean Platelet Volume 10.4 fL (9.4-12.4); Platelet Count 155 K/uL (130-400); RDW Coefficient of Variation 13.4 % (11.5-14.5); RDW Standard Deviation 40.7 fL (36.4-46.3); Red Blood Count 2.71 M/uL (4.20-5.40)
[2024-02-23] MEDS: MEASLES, MUMPS & RUBELLA VIRUS VACCINE (MMR) 0.5ML VIAL SQ ONE (08:51)
[2024-02-23] MEDS: DIPHTHER/TETAN/PERTUS Vaccine (Tdap, Adol/Adult) 0.5mL IM ONE (08:51)
--- NOTE | 2024-02-23 09:18 | Obstetrical Progress Note ---
Date of Service February 23, 2024 Assessment & Plan Admission and Anticipated Discharge Date Admission Date: February 21, 2024 Subjective Patient is seen and examined. She feels well, no complaints. Ambulated to BR without dizziness Has not walked in hallways yet Voiding without difficulty Tolerating regular diet with out N&V Bleeding is minimal No fever/ chills/ CP/ SOB/ N&V/ Leg pain Bottle/ formula feeding without problems Vital Signs Temp Pulse Resp BP Pulse Ox O2 Del Method 02/23/24 03:45 36.9 C 91 H 16 101/63 99 Room Air 02/23/24 00:30 36.7 C 88 18 100/67 97 Room Air Lab Results 02/21/24 02/22/24 02/23/24 Range/Units 08:48 06:24 05:30 WBC 11.22 H 23.36 H D 17.00 H (4.8-10.8) K/ul RBC 3.94 L 3.29 L 2.71 L (4.20-5.40) M/uL Hgb 10.7 L 9.1 L 7.5 L (12.0-16.0) g/dl Hct 32.6 L 27.6 L 22.9 L (37.0-47.0) % MCV 82.7 83.9 84.5 (80.0-100.0) fL MCH 27.2 27.7 27.7 (25.0-34.0) pg MCHC 32.8 33.0 32.8 (32.0-36.0) g/dL RDW Std Deviation 38.8 39.6 40.7 (36.4-46.3) fL RDW Coeff of Khadra 12.9 13.2 13.4 (11.5-14.5) % Plt Count 227 188 155 (130-400) K/uL MPV 10.7 10.4 10.4 (9.4-12.4) fL Immature Gran % (Auto) 0.6 % Neut % (Auto) 91.1 % Lymph % (Auto) 4.4 % Foard % (Auto) 3.7 % Eos % (Auto) 0.0 % Baso % (Auto) 0.2 % Neut # (Auto) 21.26 H (1.40-6.50) K/uL Lymph # (Auto) 1.03 L (1.20-3.40) K/uL Foard # (Auto) 0.87 H (0.11-0.59) K/uL Eos # (Auto) 0.00 (0.00-0.50) K/uL Baso # (Auto) 0.05 (0.00-0.20) K/uL Immature Gran # (Auto) 0.15 (0.01-0.20) K/uL Treponema pallidum Ab Negative (Negative) PE: General: Alert, orientedx3, NAD Abd: soft, NT, fundus firm, below Umbilicus Perineum intact, Lochia rubra minimal Ext; NT, no edema AP: 26 yo s/p , ppd# 1 VSS Afebrile doing well Anemic,s/p IV iron yesterday, on PO now Discussed blood transfusion if she is symptomatic, plans to see how she would feel today, ambulate Continue to monitor closely All questions were answered D/C home tomorrow Results & Data Vital Signs (Past 12 Hours) Vital Signs Temp Pulse Resp BP Pulse Ox O2 Del Method 02/23/24 03:45 36.9 C 91 H 16 101/63 99 Room Air 02/23/24 00:30 36.7 C 88 18 100/67 97 Room Air
[2024-02-23] MEDS: FERROUS SULFATE 325 MG TAB PO SCH (09:26)
[2024-02-23] MEDS ORDERED: Nursing to Pharmacy Communication SCH (16:00)
[2024-02-23] MEDS: FLUoxetine HCL 20 MG CAP PO SCH (17:15)
[2024-02-23] MEDS: bisacodyL 5 MG TABEC PO SCH (20:17)
[2024-02-24 06:33] LABS: Hemoglobin 6.2 g/dl (12.0-16.0); Mean Corpuscular Hemoglobin 27.9 pg (25.0-34.0); Mean Corpuscular Hgb Conc 32.6 g/dL (32.0-36.0); Mean Corpuscular Volume 85.6 fL (80.0-100.0); Mean Platelet Volume 10.9 fL (9.4-12.4); Platelet Count 161 K/uL (130-400); RDW Coefficient of Variation 13.6 % (11.5-14.5); RDW Standard Deviation 41.4 fL (36.4-46.3); Red Blood Count 2.22 M/uL (4.20-5.40); White Blood Count 14.22 K/ul (4.8-10.8)
[2024-02-24] MEDS ORDERED: SODIUM CHLORIDE 0.9% 250 ML IV PRN (06:49)
[2024-02-24 06:51] LABS: Basophils # (auto) 0.02 K/uL (0.00-0.20); Basophils % (auto) 0.1 %; Eosinophils # (auto) 0.17 K/uL (0.00-0.50); Eosinophils % (auto) 1.2 %; Immature Granulocytes # (auto) 0.19 K/uL (0.01-0.20); Immature Granulocytes % (auto) 1.3 %; Lymphocytes # (auto) 1.74 K/uL (1.20-3.40); Lymphocytes % (auto) 12.2 %; Monocytes # (auto) 0.81 K/uL (0.11-0.59); Monocytes % (auto) 5.7 %; Neutrophils # (auto) 11.29 K/uL (1.40-6.50); Neutrophils % (auto) 79.5 %
[2024-02-24] MEDS ORDERED: diphenhydrAMINE Capsule 25 MG CAP PO ONE (07:11)
--- NOTE | 2024-02-24 09:47 | OB/GYN Consultation ---
Date of Consultation February 24, 2024 History of Present Illness Attending Physician: Moose Rich MD Allergies Allergy/AdvReac Type Severity Reaction Status Date / Time No Known Allergies Allergy Unverified 02/21/24 07:49 Home Medications Medication Instructions Recorded Confirmed Type Acetaminophen (Tylenol) 1,000 mg PO Q4 PRN Pain or Fever 02/01/17 02/21/24 History #0 tabs 1 tab PO DAILY 01/28/24 02/21/24 History fluoxetine 10 mg capsule 20 mg PO DAILY 01/28/24 02/21/24 History Tums 2 tabs PO HS PRN Heartburn 02/21/24 02/21/24 History amoxicillin 875 mg-potassium 1 tab PO BIDM #14 tabs 02/23/24 Rx clavulanate 125 mg tablet ferrous sulfate 325 mg (65 mg 325 mg PO BID #60 tabs 02/23/24 Rx iron) tablet,delayed release ibuprofen 600 mg tablet 600 mg PO Q6 #60 tabs 02/23/24 Rx Patient History Medical History Anxiety No known health problems Surgical History No history of previous surgery Social History Smoking Status: Former smoker Tobacco Type: E-cigarettes / Vaping Do You Dip or Chew Tobacco: No; Hx Alcohol Use: No Hx Substance Use: No Preferred Language: Pashto Communication Ability: Effective Translation Director Required: No Beliefs That Will Affect Care: None marital status: Current Living Situation: Spouse Feels Safe at Home: Yes Safety Concerns: Feels Safe At This Time Assistive Devices: None Results & Data Vital Signs (Past 12 Hours) Vital Signs Temp Pulse Pulse Resp BP BP Pulse Ox 02/24/24 09:35 36.8 C 98 H 18 114/76 98 02/24/24 08:53 37.1 C 115 H 16 117/75 100 02/24/24 08:45 37.1 C 115 H 16 117/75 100 02/24/24 03:25 37.1 C 106 H 18 107/70 100 02/23/24 22:55 37 C 78 16 113/72 98 O2 Del Method 02/24/24 09:35 02/24/24 08:53 02/24/24 08:45 Room Air 02/24/24 03:25 Room Air 02/23/24 22:55 Room Air
--- NOTE | 2024-02-24 09:51 | Obstetrical Progress Note ---
Date of Service February 24, 2024 Assessment & Plan (1) Anemia associated with acute blood loss: 2 units PRBC's Subjective Ambulation: ambulating normally Voiding: no voiding problems Passing Gas:: Yes Diet Tolerance:: regular diet Lochia:: Small Feeding Type:: bottle feeding Current Pain Level(1-10): 0 doing well. no dizziness. Physical Exam Constitutional WD/WN, vitals as above Gastrointestinal (Abdomen) Inspection/Auscultation: abdomen normal to inspection abdomen soft and non-tender. fundus fiirm below U. Musculoskeletal Extremities: extremities normal to inspection Skin no rashes, warm and dry Neurologic patellar DTR's 2+ bilat, sensation intact Psychiatric A+Ox3, euthymic affect Genitourinary no vaginal bleeding at this time per patient Results & Data Vital Signs (Past 12 Hours) Vital Signs Temp Pulse Pulse Resp BP BP Pulse Ox 02/24/24 09:35 36.8 C 98 H 18 114/76 98 02/24/24 08:53 37.1 C 115 H 16 117/75 100 02/24/24 08:45 37.1 C 115 H 16 117/75 100 02/24/24 03:25 37.1 C 106 H 18 107/70 100 02/23/24 22:55 37 C 78 16 113/72 98 O2 Del Method 02/24/24 09:35 02/24/24 08:53 02/24/24 08:45 Room Air 02/24/24 03:25 Room Air 02/23/24 22:55 Room Air Laboratory Results Laboratory Results - last 72 hr 02/21/24 02/22/24 02/23/24 08:48 06:24 05:30 WBC 23.36 H D 17.00 H RBC 3.29 L 2.71 L Hgb 9.1 L 7.5 L Hct 27.6 L 22.9 L MCV 83.9 84.5 MCH 27.7 27.7 MCHC 33.0 32.8 RDW Std Deviation 39.6 40.7 RDW Coeff of Khadra 13.2 13.4 Plt Count 188 155 MPV 10.4 10.4 Immature Gran % (Auto) 0.6 Neut % (Auto) 91.1 Lymph % (Auto) 4.4 Ralls % (Auto) 3.7 Eos % (Auto) 0.0 Baso % (Auto) 0.2 Neut # (Auto) 21.26 H Lymph # (Auto) 1.03 L Ralls # (Auto) 0.87 H Eos # (Auto) 0.00 Baso # (Auto) 0.05 Immature Gran # (Auto) 0.15 Treponema pallidum Ab Negative Blood Type Blood Type Recheck Antibody Screen Crossmatch 02/24/24 02/24/24 05:50 07:00 WBC 14.22 H RBC 2.22 L Hgb 6.2 L* Hct 19.0 L* MCV 85.6 MCH 27.9 MCHC 32.6 RDW Std Deviation 41.4 RDW Coeff of Khadra 13.6 Plt Count 161 MPV 10.9 Immature Gran % (Auto) 1.3 Neut % (Auto) 79.5 Lymph % (Auto) 12.2 Ralls % (Auto) 5.7 Eos % (Auto) 1.2 Baso % (Auto) 0.1 Neut # (Auto) 11.29 H Lymph # (Auto) 1.74 Ralls # (Auto) 0.81 H Eos # (Auto) 0.17 Baso # (Auto) 0.02 Immature Gran # (Auto) 0.19 Treponema pallidum Ab Blood Type B Positive Blood Type Recheck B Positive Antibody Screen NEGATIVE Crossmatch See Detail
[2024-02-24 12:35] VITALS: TEMP 98.4
[2024-02-24 13:31] VITALS: RESP 18
[2024-02-24] MEDS: ACETAMINOPHEN 325 MG TAB PO ONE (13:34)
[2024-02-24 15:27] LABS: Hemoglobin 8.5 g/dl (12.0-16.0)
[2024-02-24 15:40] VITALS: O2SAT 98
[2024-02-24 15:43] VITALS: BP 112/70; PULSE 91
== END 2024-02-24 17:00 | disposition home health service (06) | DRG 806 ==
LOC: 4S1 07:31 → 4E2 02-22 06:12
DX: Z3A.40 40 weeks gestation of pregnancy; Z37.0 Single live birth; Z87.891 Personal history of nicotine dependence; D62 Acute posthemorrhagic anemia; O70.1 Second degree perineal laceration during delivery; O75.81 Maternal exhaustion complicating labor and delivery; O90.81 Anemia of the puerperium; O48.0 Post-term pregnancy